=== PATIENT | male | born 1990 | race Caucasian/White ===

== ENCOUNTER 2017-12-28 08:10 | Emergency (ER) | payer OTHER, SELFPAY | END 2017-12-28 09:40 | disposition home or self-care (01) | LOC: M ED 08:10 | DX: S60.011A Contusion of right thumb without damage to nail, initial encounter (principal); W23.0XXA Caught, crushed, jammed, or pinched between moving objects, initial encounter; Y92.9 Unspecified place or not applicable; Y93.9 Activity, unspecified; Y99.0 Civilian activity done for income or pay; Z88.0 Allergy status to penicillin | CPT/HCPCS: 73140 ==

== ENCOUNTER 2018-01-27 08:55 | Emergency (ER) | payer SELFPAY, OTHER ==
[2018-01-27] MEDS: diazePAM 5 MG TAB PO (09:47)
[2018-01-27] MEDS: KETOROLAC 60 MG/2 ML VIAL (J1885) IM (09:47)
== END 2018-01-27 10:41 | disposition home or self-care (01) ==
LOC: M ED 08:55
DX: S39.012A Strain of muscle, fascia and tendon of lower back, initial encounter (principal); M54.16 Radiculopathy, lumbar region; X50.9XXA Other and unspecified overexertion or strenuous movements or postures, initial encounter; Y92.410 Unspecified street and highway as the place of occurrence of the external cause; Z88.0 Allergy status to penicillin
CPT/HCPCS: J1885

== ENCOUNTER 2019-04-17 20:23 | Emergency (ER) | payer SELFPAY ==
[~2019-04-17] VITALS: Ht 177.8 cm; Wt 82.9 kg
[~2019-04-17 20:23] MED LIST: KETO10TAB PO; VALI5TAB PO
[2019-04-17] MEDS ORDERED: diphenhydrAMINE INJ 50MG/ML VIAL (J1200) IV ONE (20:45)
[2019-04-17] MEDS ORDERED: FAMOTIDINE IV BAG 20 MG in APPROPRIATE DILUENT 1 EA IV ONE (20:45)
[2019-04-17] MEDS ORDERED: methylPREDNISolone INJ 125 MG/2 ML VIAL (J2930) IV ONE (20:45)
[2019-04-17 21:46] VITALS: BP 129/74
[2019-04-17] MEDS ORDERED: EPIP0.3I2 IM (22:33)
[2019-04-17] MEDS ORDERED: PRED20TA PO (22:33)
== END 2019-04-17 22:53 | disposition home or self-care (01) ==
LOC: M ED 20:23
DX: T63.441A Toxic effect of venom of bees, accidental (unintentional), initial encounter (principal); Y92.9 Unspecified place or not applicable; Y93.9 Activity, unspecified; L50.9 Urticaria, unspecified; Z88.0 Allergy status to penicillin; Z91.030 Bee allergy status
CPT/HCPCS: 96365; 96375; 99284; J1200; J2930

== ENCOUNTER 2019-09-02 09:30 | Emergency (ER) | payer SELFPAY ==
[~2019-09-02] VITALS: Ht 177.8 cm; Wt 81.8 kg
[~2019-09-02 09:30] MED LIST changes: +EPIP0.3I2 IM; +PRED20TA PO
[2019-09-02] MEDS ORDERED: IBUPROFEN 800 MG TAB PO ONE (10:00)
[2019-09-02] MEDS ORDERED: IBUP80TA PO (10:53)
--- NOTE | 2019-09-02 10:53 | REP ---
Left tib-fib series: Four views. History: Trauma. Findings: Four views of the left tibia and fibula demonstrate normal bones, joints and soft tissues. No fracture or subluxation is seen. Impression: Negative radiographs of the left calf. Electronically Signed by Cb Bird MD 09/02/2019 10:44 A
--- NOTE | 2019-09-02 10:53 | REP ---
Left ankle series: Four views. History: Injury in a fall. Findings: Four views of the left ankle demonstrate mild anterior swelling. Ankle mortise is intact. No fractures seen. Impression: No fracture noted. Mild anterior swelling. Electronically Signed by Cb Bird MD 09/02/2019 10:45 A
[2019-09-02 11:03] VITALS: BP 120/74
== END 2019-09-02 11:11 | disposition home or self-care (01) ==
LOC: M ED 09:30
DX: S93.402A Sprain of unspecified ligament of left ankle, initial encounter (principal); W10.2XXA Fall (on)(from) incline, initial encounter; Y92.009 Unspecified place in unspecified non-institutional (private) residence as the place of occurrence of the external cause; Y93.9 Activity, unspecified; Y99.9 Unspecified external cause status; Z88.1 Allergy status to other antibiotic agents; Z91.030 Bee allergy status

== ENCOUNTER 2020-09-10 13:31 | Emergency (ER) | payer OTHER, SELFPAY ==
[~2020-09-10] VITALS: Ht 177.8 cm; Wt 92.9 kg
[~2020-09-10 13:31] MED LIST changes: +IBUP80TA PO
--- OUTSIDE RECORDS SUMMARY | 2020-09-10 13:36 | CCD | Continuity of Care Document ---
Author Author Suleman KIMBROUGH MD Organization Unknown Address [address] [place] [address], [facility] [address] [place] [address] Phone [phone] Care Team Providers Care Lease Broker Name Role Phone Dio Ureña MD AUTM Unavailable Shobha GonzalezP AUTM Problems Active Problems Provider Date Lumbar radiculopathy Onset: Allergic reaction Onset: Contusion of right thumb Onset: 00 Ankle pain Onset: Sprain of ankle Onset: Low back strain Onset: Social History Type Date Description Comments Sex Unknown ETOH Use Occasionally consumes alcohol Tobacco Use Start: Unknown Patient has never smoked Allergies, Adverse Reactions, Alerts Active Allergies Reaction Severity Comments Date Amoxicillin 09/02/2019 Honey Bee Venom hives Severe 09/02/2019 Medications Active Medications SIG Qnty Indications Ordering Provide r Date Ibuprofen 800mg Tablets Every 6 Hours as needed for Pain 30tabs Unknown 09/02/2019 Fluticasone Propionate 50mcg/Act Suspension Valdo Vann md Levocetirizine Dihydrochloride 5mg Tablets Valdo Vann md Doxycycline Hyclate 100mg Tablets Ofelia De La Cruz FNP Naproxen 500mg Tablets Ofelia De La Cruz FNP Azithromycin 500mg Tablets TK 2 TS PO Now Unknown Immunizations Description No Information Available Vital Signs Date Vital Result Comment 07/24/2020 9:23am Body Temperature 98.2 F Height 70 inches 5'10" Weight 200.00 lb BMI (Body Mass Index) 28.7 kg/m2 09/04/2019 10:13am Body Temperature 97.9 F Height 70 inches 5'10" Weight 180.00 lb BMI (Body Mass Index) 25.8 kg/m2 Results Description No Information Available Procedures Description No Information Available Medical Devices Description No Information Available Encounters Type Date Location Provider Dx Diagnosis Office Visit 07/24/2020 9:30a [place] Bert Kimbrough MD M2 5.511 Pain in right shoulder Assessments Date Code Description Provider 07/24/2020 M25.511 Pain in right shoulder Bert Kimbrough MD Plan of Treatment 07/24/2020 - Bert Kimbrough MD* M25.511 Pain in right shoulder* Follow up:* [facility] after MRI results with DPV Functional Status Description No Information Available Mental Status Description No Information Available Referrals Refer to Reason for Referral Status Appt Date Jennifer Robledo MD MRI APPROVED PER [employer] FOR MRI OF RIGHT SHOULDER (49845) TO MRI. DG Created [facility] [address] [place] [address] [phone]
--- OUTSIDE RECORDS SUMMARY | 2020-09-10 13:36 | CCD | Continuity of Care Document ---
Author Author Suleman KIMBROUGH MD Organization Unknown Address [address] [place] [address] [address] [place] [address] Phone [phone] Care Team Providers Care Cessation Systems Outreach Specialist Name Role Phone Dio Ureña MD AUTM Unavailable Shobha Gonzalez TOUR PRODUCTION SUPERVISOR AUTM Problems Active Problems Provider Date Lumbar [...] Available Vital Signs Date Vital Result Comment 09/03/2020 8:36am Body Temperature 97.1 F 07/24/2020 9:23am Body Temperature 98.2 F Height 70 inches 5'10" Weight 200.00 lb BMI (Body Mass Index) 28.7 kg/m2 Results Description No Information Available Procedures Date Code Description Status 07/31/2020 89284 MRI Upper Extremity Any Joint Co mpleted Medical Devices Description No Information Available Encounters Type Date Location Provider Dx Diagnosis Office Visit 07/24/2020 9:30a [place] Bert Kimbrough MD M2 5.511 Pain in right shoulder Assessments Date Code Description Provider 09/03/2020 S43.431A [facility] gl[facility] lab rum lesion of right shoulder, initial encounter Bert Kimbrough MD 07/31/2020 M25.511 Pain in right shoulder Bert Kimbrough MD 07/31/2020 M25.511 Pain in right shoulder MRI 07/24/2020 M25.511 Pain in right shoulder Bert Kimbrough MD Plan of Treatment 09/03/2020 - Bert Kimbrough MD* S43.431A Superior glenoid labrum lesion of right shoulder, initial encounter* Follow up:* in 3-4 months with dpv Functional Status Description No Information Available Mental Status Description No Information Available Referrals Refer to Reason for Referral Status Appt Date Jennifer Robledo MD MRI APPROVED PER [employer] FOR MRI OF RIGHT SHOULDER (41427) TO MRI. DG Created [address] [place] [address] [address] [place] [address] [phone]
--- OUTSIDE RECORDS SUMMARY | 2020-09-10 13:36 | CCD ---
Continuity of Care Document (CCD) Created on: 08/06/2020 Suleman Berry External Reference #: [id number] : 1990 Sex: Male Author Author Suleman DE SOUZA Organization Unknown Address [address] [place] [address], [address] [place] [address] Phone [phone] Care Team Providers Care Procurement Buyer Name Role Phone Dio Ureña MD AUTM Unavailable Shobha Gonzalez AUTM [phone] Problems Active Problems Provider Date Lumbar radiculopathy [...] Available Procedures Date Code Description Status 07/31/2020 83015 MRI Upper Extremity Any Joint Co mpleted Medical Devices Description No Information Available Encounters Type Date Location Provider Dx Diagnosis Office Visit 07/24/2020 9:30a [place] Kimb[place] MD M2 5.511 Pain in right shoulder Assessments Date Code Description Provider 07/31/2020 M25.511 Pain in right shoulder Bert [...] Date Jennifer Robledo MD MRI APPROVED PER [employer] FOR MRI OF RIGHT SHOULDER (22436) TO MRI. DG Created [facility] [address] [place] [address] [phone]
--- OUTSIDE RECORDS SUMMARY | 2020-09-10 13:36 | CCD | Continuity of Care Document ---
Author Author Suleman HENDRIX Organization Unknown Address [address], [place] [address] Phone [phone] Care Team Providers Care Kettle Worker Name Role Phone Edita Ann PA-C AUTM [phone] Problems Active Problems Provider Date Bee sting-induced anaphylaxis Valdo Hendrix M.D. Onse t: 06/04/2020 Note: 3+ positive reaction to honey bee at 1 mcg/ml dilution. 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 Onset: Note: 3+ positive reaction yellow jacket and white faced hornet at 0.001 mcg/ml dilution. 3+ positive reaction yellow hornet at 0.01 mcg/ml dilution. Wasp sting-induced anaphylaxis Valdo Hendrix M.D. Ons et: 06/04/2020 Note: 3+ positive reaction to wasp at 0 .001 mcg/ml dilution. Allergic rhinitis due to house dust mite Valdo Hendrxi M.D. Onset: 07/10/2020 Note: 4++ reaction to dust mites on scra tch test. 3+ reaction to mold spores on intradermal test. Allergic rhinitis caused by mold Valdo Hendrix M.D. O nset: 07/10/2020 Note: 4++ reaction to dust mites on scra tch test. 3+ reaction to mold spores on intradermal test. Allergic rhinitis due to pollen Valdo Hendrix M.D. On set: 07/10/2020 Note: 4++ positive reaction to grass mundo alta and 4+ positive reaction to hickory tree pollen on scratch test. 4+ positive reaction to ragweed pollen, weed pollen, tree mix #1 (birch, oak, maple) and tree mix #2 (guillermo, cottonwood, elm, pine) on intradermal test. Allergic rhinitis due to animals Valdo Hendrix M.D. O nset: 07/10/2020 Note: 4++ positive reaction to cat dand er and 4+ positive reaction to dog dander on intradermal test. Currently exposed to 2 cats in the home. Toxic effect of venom of hornets, accidental (unintent ional), initial encounter Valdo Hendrix M.D. Onset: 07/10/2020 Social History Type Date Description Comments Sex Unknown Tobacco Use Start: Unknown Patient has never smoked Smoking Status Reviewed: 07/10/20 Patient has never smoked Allergies, Adverse Reactions, Alerts Active Allergies Reaction Severity Comments Date Amoxicillin Hives 06/04/2020 Medications Active Medications SIG Qnty Indications Ordering Provide r Date Fluticasone Propionate 50mcg/Act Suspension spray 2 sprays (100 mcg) in each nostril by intranasal route once daily in the evening 32gm J30.89 Valdo Hendrix M.D. 2019 Levocetirizine Dihydrochloride 5mg Tablets take one tablet by mouth every evening 30tabs J30.89 Wilmer Hendrix M.D. 07/10/2020 Epipen 2-Hamilton 0.3mg/0 .3ML Solution Auto-Inject inject 0.3 milliliter (0.3 mg) by intram uscular route once as needed for anaphylaxis Unknown History Medications No Active Medications Unknown - 07/10/2020 Immunizations Description No Information Available Vital Signs Date Vital Result Comment 07/10/2020 9:01am Weight 197.00 lb Height 71 inches 5'11" Heart Rate 76 /min Respiratory Rate 16 /min BP Systolic 114 mmHg BP Diastolic 64 mmHg BMI (Body Mass Index) 27.5 kg/m2 06/04/2020 8:26am Weight 195.00 lb Height 71 inches 5'11" Heart Rate 69 /min Respiratory Rate 18 /min BP Systolic 110 mmHg BP Diastolic 70 mmHg BMI (Body Mass Index) 27.2 kg/m2 Results Description No Information Available Procedures Date Code Description Status 07/10/2020 44304 Allergy Tests Intrad ermal W/ Allergenic Extr Immediate Reaction Completed 07/10/2020 11106 Allergy Tests Percutaneous W/ Al lergenic Extracts Completed 06/04/2020 04367 Allergy Testing Any Combination Percutaneous W/Venom Completed Medical Devices Description No Information Available Encounters Type Date Location Provider Dx Diagnosis Office Visit 07/10/2020 9:00a Main Office Valdo Hendrix M.D. Z01.82 Encounter for allergy testing J30.89 Other allergic rhinitis J30.1 Allergic rhinitis due to mundo alta J30.81 Allergic rhinitis due to ani mal (cat) (dog) hair and dander T63.461D Toxic effect of venom of was ps, accidental, subs T63.451D Toxic effect of venom of hor nets, accidental, subs T63.441D Toxic effect of venom of bee s, accidental, subs Assessments Date Code Description Provider 07/10/2020 Z01.82 Encounter for allergy testing Wilmer Hendrix M.D. 07/10/2020 J30.89 Allergic rhinitis due to house d ust mites and mold spores Valdo Hendrix M.D. 07/10/2020 J30.1 Allergic rhinitis due to pollen Valdo Hendrix M.D. 07/10/2020 J30.81 Allergic rhinitis due to animals Valdo Hendrix M.D. 07/10/2020 T63.461D Toxic effect of veno m of wasps, accidental (unintentional), subsequent encounter Valdo Hendrix M.D. 07/10/2020 T63.451D Toxic effect of veno m of hornets, accidental (unintentional), subsequent encounter Valdo Hendrix M.D. 07/10/2020 T63.441D Toxic effect of veno m of bees, accidental (unintentional), subsequent encounter Valdo Hendrix M.D. Plan of Treatment Future Appointment(s):* 12/08/2020 9:15 am - Valdo Hendrix M.D. at Main Office 07/10/2020 - Valdo Hendrix M.D.* Z01.82 Encounter for allergy testing * J30.89 Allergic rhinitis due to house dust mites and mold spores* New Medication:* Fluticasone Propionate 50 mcg/Act - spray 2 sprays (100 mcg) in each nostril by intranasal route once daily in the evening * Levocetirizine Dihydrochloride 5 mg - take one tablet by mouth every evening * Recommendations:* I reviewed effective allergy avoidance measures for dust mites. I suggested to start this patient on intranasal steroid spray for the congestion and to use antihistamine prn itching and sneezing. Nasal spray should be used consistently every night to be effective. Oral antihistamine should help with itchy eyes, nose and sneezing when needed. Because of the severity of allergy problem allergy immunotherapy may be considered strongly if symptoms continue or fail to improve with medications. I explained the risks and benefits associated with immunotherapy at this time as well. * J30.1 Allergic rhinitis due to pollen* Recommendations:* I reviewed allergy avoidance measures for pollen that may possibly help with symptoms. See above. * J30.81 Allergic rhinitis due to animals* Recommendations:* I reviewed effective allergy avoidance measures in regards to his/her allergy to animals. See above. * T63.461D Toxic effect of venom of wasps, accidental (unintentional), subsequent encounter* Recommendations:* Bee avoidance measures were explained in details and recommended. Access to injectable epinephrine is necessary. I also reviewed indications for EpiPen and proper technique. * T63.451D Toxic effect of venom of hornets, accidental (unintentional), subsequent encounter* Recommendations:* Bee avoidance measures were explained in details and recommended. Access to injectable epinephrine is necessary. I also reviewed indications for EpiPen and proper technique. * T63.441D Toxic effect of venom of bees, accidental (unintentional), subsequent encounter* Recommendations:* Bee avoidance measures were explained in details and recommended. Access to injectable epinephrine is necessary. I also reviewed indications for EpiPen and proper technique. * All * Follow up:* 3 months. Sooner if needed. Functional Status Description No Information Available Mental Status Description No Information Available Referrals Description No Information Available
--- OUTSIDE RECORDS SUMMARY | 2020-09-10 13:36 | CCD | Continuity of Care Document ---
Author Author Suleman DE SOUZA Organization Unknown Address [address] [place] [address], [address] [place] [address] Phone [phone] Care Team Providers Care Drying Machine Operator Name Role Phone Dio Ureña MD AUTM Unavailable Shobha Gonzalez AUTM [phone] Problems Active Problems Provider Date Lumbar [...] Provider Dx Diagnosis Office Visit 07/24/2020 9:30a [place] M7 5.21 Bicipital tendinitis, right shoulder Assessments Date Code Description Provider 07/24/2020 M75.21 Bicipital tendinitis, right shou lder Bert Kimbrough MD Plan of Treatment 07/24/2020 - Bert Kimbrough MD* M75.21 Bicipital tendinitis, right shoulder* Follow up:* [facility] after MRI results with DPV Functional Status Description No Information Available Mental Status Description No Information Available Referrals Refer to Dr Reason for Referral Status Appt Date Jennifer Robledo MD MRI APPROVED PER [employer] FOR MRI OF RIGHT SHOULDER (48363) TO MRI. DG Created [address] [facility] [address] [place] [address] [phone]
--- OUTSIDE RECORDS SUMMARY | 2020-09-10 13:36 | CCD | Continuity of Care Document ---
Author Author Suleman HENDRIX Organization Unknown Address [address], [place] [address] Phone [phone] Care Team Providers Care Metal Moulder Name Role Phone Edita Ann PA-C AUTM [phone] Problems Active Problems Provider Date Bee sting-induced [...] .001 mcg/ml dilution. Allergic rhinitis due to pollen Valdo Hendrix M.D. On set: 07/10/2020 Allergic rhinitis due to house dust mite Valdo Hendrix M.D. Onset: 07/10/2020 Social History Type Date Description Comments Sex Unknown Tobacco Use Start: Unknown Patient has never smoked Smoking Status Reviewed: 07/10/20 Patient has never smoked Allergies, Adverse Reactions, Alerts Active Allergies Reaction Severity Comments Date Amoxicillin Hives 06/04/2020 Medications Active Medications SIG Qnty Indications Ordering Provide r Date Epipen 2-Hamilton 0.3mg/0 .3ML Solution Auto-Inject inject [...] Available Procedures Date Code Description Status 07/10/2020 31317 Allergy Tests Intrad ermal W/ Allergenic Extr Immediate Reaction Completed 07/10/2020 89315 Allergy Tests Percutaneous W/ Al lergenic Extracts Completed 06/04/2020 42715 Allergy Testing Any Combination Percutaneous W/Venom Completed Medical Devices Description No Information Available Encounters Type Date Location Provider Dx Diagnosis Office Visit 06/04/2020 8:30a Main Office Valdo Hendrix M.D. T63.441A Toxic effect of venom of bees, accidental, init T63.461A Toxic effect of venom of was ps, accidental, init T63.451A Toxic effect of venom of hor nets, accidental, init J31.0 Chronic rhinitis Assessments Date Code Description Provider 07/10/2020 Z01.82 Encounter for allergy testing Wilmer Hendrix M.D. 07/10/2020 J30.89 Allergic rhinitis due to house d ust mite Valdo Hendrix M.D. 07/10/2020 J30.1 Allergic rhinitis due to pollen Valdo Hendrix M.D. 07/10/2020 T63.441A Bee sting-induced anaphylaxis Wilmer Hendrix M.D. 07/10/2020 T63.461A Wasp sting-induced anaphylaxis Cristy Hendrix M.D. 07/10/2020 T63.451A Hornet sting-induced anaphylaxis Valdo Hendrix M.D. Plan of Treatment Future Appointment(s):* 12/08/2020 9:15 am - Valdo Hendrix M.D. at Main Office 07/10/2020 - Valdo Hendrix M.D.* Z01.82 Encounter for allergy testing * J30.89 Allergic rhinitis due to house dust mite* Recommendations:* I reviewed effective allergy avoidance measures for dust mites. I suggested to start this patient on intranasal steroid spray for the congestion and to use anti histamine prn itching and sneezing. Nasal spray should [...] possibly help with symptoms. See above. * T63.441A Bee sting-induced anaphylaxis * T63.461A Wasp sting-induced anaphylaxis * T63.451A Hornet sting-induced anaphylaxis Functional Status Description No Information Available Mental Status Description No Information Available Referrals Description No Information Available
--- OUTSIDE RECORDS SUMMARY | 2020-09-10 13:36 | CCD ---
Author Organization Unknown Address [address] [place] [address] Phone [phone] Care Team Providers Care Scale Tank Operator Name Role Phone Edita Ann Unavailable Unavailable Allergies Code Code System Name Reaction Severity Status Onset 723 RxNorm Amoxicillin Hives Moderate to Severe Active Bee Venom Protein (Honey Bee) Hives Severe Active Medications Name Status Start Date Stop Date doxycycline hyclate 100 mg tablet Completed 06/23/2020 naproxen 500 mg tablet Completed 0 Jamison-E (Enteric Coated) 400 mg tablet,del ayed release Take 2 tablets every day by oral route in the morning. Active Not available Problems None recorded. Procedures None recorded. Results Lab Results None recorded. Past Encounters 06/23/2020 Adult Health Examination; Pain of Right Shoulder Joint; Moderate Recurrent Major Depression Edita Ann PA-C: [address] [place] [address], Ph. 06/22/2020 Generalized Anxiety Disorder; Posttraumatic Stress Disorder; Moderate Recurrent Major Depression Yue Hurtadojaymebryantreyes [facility]: [address] [facility] [address], [place] [address], Ph. 06/16/2020 Posttraumatic Stress Disorder; Generalized Anxiety Disorder; Moderate Recurrent Major Depression Yue Reneereyes [facility]: [address] [facility] [address], [place] [address], Ph. Social History Tobacco Smoking Status Never Smoker Vaccine List None recorded. Plan of Care Reminders Provider Appointments None recorded. Lab None recorded. Referral None recorded. Procedures None recorded. Surgeries None recorded. Imaging None recorded. Vitals Height Weight BMI Blood Pressure 70 in 200 lbs 6.4 oz 28.8 kg/m2 126/81 mm[Hg ]
--- OUTSIDE RECORDS SUMMARY | 2020-09-10 13:36 | CCD | Continuity of Care Document ---
Author Author Suleman KIMBROUGH MD Organization Unknown Address [address] [place] [address], [address] [address] Phone [phone] Care Team Providers Care Automation Qtp Tester Name Role Phone Dio Ureña MD AUTM Unavailable Shobha GonzalezP AUTM [phone] Problems Active Problems Provider Date Lumbar [...] Medical Devices Description No Information Available Encounters Description No Information Available Assessments Date Code Description Provider 07/24/2020 M75.21 Bicipital tendinitis, right shou ldcrystal Kimbrough MD Plan of Treatment 07/24/2020 - Bert Kimbrough MD* M75.21 Bicipital tendinitis, right shoulder* New Xrays:* MRI Right Shoulder, Ordered: 07/24/20 * Follow up:* [facility] after MRI results with DPV Functional Status Description No Information Available Mental Status Description No Information Available Referrals Description No Information Available
--- OUTSIDE RECORDS SUMMARY | 2020-09-10 13:37 | CCD ---
Author Organization Unknown Address [address] [place] [address] Phone [phone] Care Team Providers Care Radiologic Therapist Name Role Phone Edita Ann Unavailable Unavailable Allergies None recorded. Medications Name Status Start Date Stop Date doxycycline hyclate 100 mg tablet Active Not available naproxen 500 mg tablet Active Not avail able Problems None recorded. Procedures None recorded. Results Lab Results None recorded. Past Encounters 06/16/2020 Posttraumatic Stress Disorder; Generalized Anxiety Disorder; Moderate Recurrent Major Depression [facility]: [address] [facility] [facility] [address], [place] [address], Ph. Social History None recorded. Vaccine List None recorded. Plan of Care Reminders Provider Appointments None recorded. Lab None recorded. Referral None recorded. Procedures None recorded. Surgeries None recorded. Imaging None recorded. Vitals None recorded.
--- OUTSIDE RECORDS SUMMARY | 2020-09-10 13:37 | CCD ---
Author Organization Unknown Address [address] [place] [address] Phone [phone] Care Team Providers Care Milk Pasteurizer Name Role Phone Edita Ann Unavailable Unavailable [...] Recurrent Major Depression Edita Ann PA-C: [address] [place] [address], Ph. 06/22/2020 Generalized Anxiety Disorder; Posttraumatic Stress Disorder; Moderate Recurrent Major Depression Yue Hurtadojaymebryantreyes [facility]: [address] [facility] [address], [place] [address], Ph. 06/16/2020 Posttraumatic Stress Disorder; Generalized Anxiety Disorder; Moderate Recurrent Major Depression Yue Reneereyes [facility]: [address] [facility] [address], [place] [address], Ph. Social History Tobacco Smoking Status Never Smoker Vaccine List None recorded. Plan of Care Reminders Provider Appointments None recorded. Lab None recorded. Referral None recorded. Procedures None recorded. Surgeries None recorded. Imaging None recorded. Vitals Height Weight BMI Blood Pressure 70 in 200 lbs 6.4 oz 28.8 kg/m2 126/81 mm[Hg ]
--- OUTSIDE RECORDS SUMMARY | 2020-09-10 13:37 | CCD ---
Author Author [facility] Organization [facility] Address Unknown Phone Unavailable Care Team Providers Care Cash Register Mechanic Name Role Phone Edita Ann Unavailable Unavailable JENNIFER BEACH MD Unavailable Unavailable JENNIFER BEACH MD Unavailable Unavailable JENNIFER BEACH MD Unavailable Unavailable JENNIFER BEACH MD Unavailable Unavailable JENNIFER BEACH MD Unavailable Unavailable JENNIFER BEACH MD Unavailable Unavailable JENNIFER BEACH MD Unavailable Unavailable JENINFER BEACH MD Unavailable Unavailable JENNIFER BEACH MD Unavailable Unavailable JENNIFER BEACH MD Unavailable Unavailable JENNIFER BEACH MD Unavailable Unavailable JENNIFER BEACH MD Unavailable Unavailable JENNIFER BEACH MD Unavailable Unavailable JENNIFER BEACH MD Unavailable Unavailable JENNIFER BEACH MD Unavailable Unavailable JENNIFER BEACH MD Unavailable Unavailable JENNIFER BEACH MD Unavailable Unavailable JENNIFER BEACH MD Unavailable Unavailable JENNIFER BEACH MD Unavailable Unavailable JENNIFER BEACH MD Unavailable Unavailable JENNIFER BEACH MD Unavailable Unavailable JENNIFER BEACH MD Unavailable Unavailable JENNIFER BEACH MD Unavailable Unavailable JENNIFER BEACH MD Unavailable Unavailable JENNIFER BEACH MD Unavailable Unavailable BEACHJENNIFER HERNANDEZ MD Unavailable Unavailable BEACHJENNIFER HERNANDEZ MD Unavailable Unavailable BEACHJENNIFER HERNANDEZ MD Unavailable Unavailable BEACHJENNIFER HERNANDEZ MD Unavailable Unavailable BEACHJENNIFER HERNANDEZ MD Unavailable Unavailable CHROSTOWSKI, MICHAEL MD Unavailable Unavailable CHROSTOWSKI, MICHAEL MD Unavailable Unavailable CHROSTOWSKI, MICHAEL MD Unavailable Unavailable CHROSTOWSKI, MICHAEL MD Unavailable Unavailable CHROSTOWSKI, MICHAEL MD Unavailable Unavailable CHROSTOWSKI, MICHAEL MD Unavailable Unavailable CHROSTOWSKI, MICHAEL MD Unavailable Unavailable CHROSTOWSKI, MICHAEL MD Unavailable Unavailable CHROSTOWSKI, MICHAEL MD Unavailable Unavailable CHROSTOWSKI, MICHAEL MD Unavailable Unavailable CHROSTOWSKI, MICHAEL MD Unavailable Unavailable CHROSTOWSKI, MICHAEL MD Unavailable Unavailable CHROSTOWSKI, MICHAEL MD Unavailable Unavailable CHROSTOWSKI, MICHAEL MD Unavailable Unavailable CHROSTOWSKI, MICHAEL MD Unavailable Unavailable CHROSTOWSKI, MICHAEL MD Unavailable Unavailable CHROSTOWSKI, MICHAEL MD Unavailable Unavailable CHROSTOWSKI, MICHAEL MD Unavailable Unavailable CHROSTOWSKI, MICHAEL MD Unavailable Unavailable CHROSTOWSKI, MICHAEL MD Unavailable Unavailable CHROSTOWSKI, MICHAEL MD Unavailable Unavailable CHROSTOWSKI, MICHAEL MD Unavailable Unavailable CHROSTOWSKI, MICHAEL MD Unavailable Unavailable CHROSTOWSKI, MICHAEL MD Unavailable Unavailable CHROSTOWSKI, MICHAEL MD Unavailable Unavailable CHROSTOWSKI, MICHAEL MD Unavailable Unavailable CHROSTOWSKI, MICHAEL MD Unavailable Unavailable CHROSTOWSKI, MICHAEL MD Unavailable Unavailable CHROSTOWSKI, MICHAEL MD Unavailable Unavailable CHROSTOWSKI, MICHAEL MD Unavailable Unavailable CHROSTOWSKI, MICHAEL MD Unavailable Unavailable CHROSTOWSKI, MICHAEL MD Unavailable Unavailable CHROSTOWSKI, MICHAEL MD Unavailable Unavailable CHROSTOWSKI, MICHAEL MD Unavailable Unavailable CHROSTOWSKI, MICHAEL MD Unavailable Unavailable CHROSTOWSKI, MICHAEL MD Unavailable Unavailable CHROSTOWSKI, MICHAEL MD Unavailable Unavailable CHROSTOWSKI, MICHAEL MD Unavailable Unavailable CHROSTOWSKI, MICHAEL MD Unavailable Unavailable CHROSTOWSKI, MICHAEL MD Unavailable Unavailable Washington Ann Unavailable Unavailable Washington Ann Unavailable Unavailable Washington Ann Unavailable Unavailable Washington nAn Unavailable Unavailable Washington Ann Unavailable Unavailable Scordo, M Edita PA Unavailable Unavailable Scordo, M Edita PA Unavailable Unavailable Scordo, M Edita PA Unavailable Unavailable Scordo, M Edita PA Unavailable Unavailable Scordo, M Edita PA Unavailable Unavailable Scordo, M Edita PA Unavailable Unavailable Scordo, M Edita PA Unavailable Unavailable Scordo, M Edita PA Unavailable Unavailable Scordo, M Edita PA Unavailable Unavailable Scordo, M Edita PA Unavailable Unavailable Scordo, M Edita PA Unavailable Unavailable Scordo, M Edita PA Unavailable Unavailable Scordo, M Edita PA Unavailable Unavailable Scordo, M Edita PA Unavailable Unavailable Scordo, M Edita PA Unavailable Unavailable Scordo, M Edita PA Unavailable Unavailable Scordo, M Edita PA Unavailable Unavailable Scordo, M Edita PA Unavailable Unavailable Scordo, M Edita PA Unavailable Unavailable Scordo, M Edita PA Unavailable Unavailable Scordo, M Edita PA Unavailable Unavailable Scordo, M Edita PA Unavailable Unavailable Scordo, M Edita PA Unavailable Unavailable Scordo, M Edita PA Unavailable Unavailable Scordo, M Edita PA Unavailable Unavailable Scordo, M Edita PA Unavailable Unavailable Scordo, M Edita PA Unavailable Unavailable Scordo, M Edita PA Unavailable Unavailable Scordo, M Edita PA Unavailable Unavailable Scordo, M Edita PA Unavailable Unavailable Scordo, M Edita PA Unavailable Unavailable Scordo, M Edita PA Unavailable Unavailable Scordo, M Edita PA Unavailable Unavailable Scordo, M Edita PA Unavailable Unavailable Scordo, M Edita PA Unavailable Unavailable [facility], SSCORDO SCORDO PA EDITA Unavailable Unavaila ble Rosi Yue Unavailable [phone] Cristy Kimbrough MD Unavailable Unavailable Cristy Kimbrough MD Unavailable Unavailable Cristy Kimbrough MD Unavailable Unavailable rCisty Kimbrough MD Unavailable Unavailable Cristy Kimbrough MD Unavailable Unavailable Cristy Kimbrough MD Unavailable Unavailable Cristy Kimbrough MD Unavailable Unavailable Cristy Kimbrough MD Unavailable Unavailable Cristy Kimbrough MD Unavailable Unavailable Cristy Kimbrough MD Unavailable Unavailable Cristy Kimbrough MD Unavailable Unavailable Cristy Kimbrough MD Unavailable Unavailable Cristy Kimbrough MD Unavailable Unavailable VanCristy holman MD Unavailable Unavailable VanCristy holman MD Unavailable Unavailable VanCristy holman MD Unavailable Unavailable VanCristy holman MD Unavailable Unavailable Cristy Kimbrough MD Unavailable Unavailable VanCristy holman MD Unavailable Unavailable VanCristy holman MD Unavailable Unavailable Cristy Kimbrough MD Unavailable Unavailable Cristy Kimbrough MD Unavailable Unavailable Cristy Kimbrough MD Unavailable Unavailable VanCristy holman MD Unavailable Unavailable VanCristy holman MD Unavailable Unavailable VanCristy holman MD Unavailable Unavailable Cristy Kimbrough MD Unavailable Unavailable Cristy Kimbrough MD Unavailable Unavailable Cristy Kimbrough MD Unavailable Unavailable Cristy Kimbrough MD Unavailable Unavailable Cristy Kimbrough MD Unavailable Unavailable Cristy Kimbrough MD Unavailable Unavailable Cristy Kimbrough MD Unavailable Unavailable Cristy Kimbrough MD Unavailable Unavailable Cristy Kimbrough MD Unavailable Unavailable Cristy Kimbrough MD Unavailable Unavailable Cristy Kimbrough MD Unavailable Unavailable Cristy Kimbrough MD Unavailable Unavailable Cristy Kimbrough MD Unavailable Unavailable Cristy Kimbrough MD Unavailable Unavailable Cristy Kimbrough MD Unavailable Unavailable Cristy Kimbrough MD Unavailable Unavailable Cristy Kimbrough MD Unavailable Unavailable Cristy Kimbrough MD Unavailable Unavailable JENNIFER BEACH MD Unavailable Unavailable JENNIFER BEACH MD Unavailable Unavailable JENNIFER BEACH MD Unavailable Unavailable JENNIFER BEACH MD Unavailable Unavailable JENNIFER BEACH MD Unavailable Unavailable JENNIFER EBACH MD Unavailable Unavailable JENNIFER BEACH MD Unavailable Unavailable JENNIFER BEACH MD Unavailable Unavailable JENNIFER BEACH MD Unavailable Unavailable JENNIFER BEACH MD Unavailable Unavailable JENNIFER BEACH MD Unavailable Unavailable JENNIFER BEACH MD Unavailable Unavailable JENNIFER BEACH MD Unavailable Unavailable JENNIFER BEACH MD Unavailable Unavailable JENNIFER BEACH MD Unavailable Unavailable JENNIFER BEACH MD Unavailable Unavailable JENNIFER BEACH MD Unavailable Unavailable JENNIFER BEACH MD Unavailable Unavailable JENNIFER BEACH MD Unavailable Unavailable JENNIFER BEACH MD Unavailable Unavailable JENNIFER BEACH MD Unavailable Unavailable JENNIFER BEACH MD Unavailable Unavailable JENNIFER BEACH MD Unavailable Unavailable BEACH, JENNIFER MD Unavailable Unavailable BEACH, JENNIFER MD Unavailable Unavailable BEACH, JENNIFER MD Unavailable Unavailable BEACH, JENNIFER MD Unavailable Unavailable BEACH, JENNIFER MD Unavailable Unavailable BEACH, JENNIFER MD Unavailable Unavailable BEACH, JENNIFER MD Unavailable Unavailable Re-disclosure Warning The records that you are about to access may contain information from federally-assisted alcohol or drug abuse programs. If such information is present, then the following federally mandated warning applies: This information has been disclosed to you from records protected by federal confidentiality rules (42 CFR part 2). The federal rules prohibit you from making any further disclosure of this information unless further disclosure is expressly permitted by the written consent of the person to whom it pertains or as otherwise permitted by 42 CFR part 2. A general authorization for the release of medical or other information is NOT sufficient for this purpose. The Federal rules restrict any use of the information to criminally investigate or prosecute any alcohol or drug abuse patient.The records that you are about to access may contain highly sensitive health information, the redisclosure of which is protected by Article 27-F of the [facility] Public Health law. If you continue you may have access to information: Regarding HIV / AIDS; Provided by facilities licensed or operated by the [facility] Office of Mental Health; or Provided by the [facility] Office for People With Developmental Disabilities. If such information is present, then the following [facility] mandated warning applies: This information has been disclosed to you from confidential records which are protected by state law. State law prohibits you from making any further disclosure of this information without the specific written consent of the person to whom it pertains, or as otherwise permitted by law. Any unauthorized further disclosure in violation of state law may result in a fine or retirement sentence or both. A general authorization for the release of medical or other information is NOT sufficient authorization for further disc losure. Allergies and Adverse Reactions Type Description Substance Reaction Status Data Source(s ) Miscellaneous allergy SEASONAL ALLERGIES SEASONAL ALLERGIES [facility] Drug allergy AMOXICILLIN AMOXICILLIN [facility] Miscellaneous allergy BEE STINGS BEE STINGS Hives [facility] Allergy to substance Allergy to substance Allergy to substance [facility] ([facility]) Encounters Encounter Providers Location Date Indications Data Source(s ) Outpatient Attender: Cristy Kimbrough MD Physical Therap y 07/24/2020 08:30:00 AM EST [facility] ([facility]) Outpatient Attender: MICHAEL HENDRIX MD Main Office 07/10/2020 08:00:00 AM EST [facility] ([facility] RASHMI RossC: [address] [place] [address], Ph. Attender: Edita ALVAREZ [facility] 06/23/2020 12:00:00 AM EST [facility] ([facility]) Edita Ann PA-C: [address] [place] [address], Ph. Attender: Edita ALVAREZ [facility] 06/23/2020 12:00:00 AM EST [facility] ([facility]) Yue Aranda, SCRAP HOOKER-R: [address], [place] [address], Ph. Attender: Yue Aranda [facility] 06/22/2020 12:00:00 AM EST [facility] ([facility]) Yue Aranda, SCRAP HOOKER-R: [address], [place] [address], Ph. Attender: Yue Aranda [facility] 06/22/2020 12:00:00 AM EST [facility] ([facility]) Yue Aranda, SCRAP HOOKER-R: [address], [place] [address], Ph. Attender: Yue Aranda [facility] 06/16/2020 12:00:00 AM EDT [facility] ([facility]) Yue Aranda, SCRAP HOOKER-R: [address], [place] [address], Ph. Attender: Yue Aranda [facility] 06/16/2020 12:00:00 AM EDT [facility] ([facility]) Yue Aranda, SCRAP HOOKER-R: [address], [place] [address], Ph. Attender: Yue Aranda [facility] 06/16/2020 12:00:00 AM EDT [facility] ([facility]) Outpatient Attender: MICHAEL HENDRIX MD Main Office 06/04/2020 08:30:00 AM EDT [facility] ([facility]) Outpatient Attender: KIM CEE 06/01/2020 08:01:01 PM EDT [facility] 06/01/2020 02:42:00 PM EDT [facility] Outpatient Attender: KIM CEE 05/25/2020 08:01:02 PM EDT [facility] Outpatient Attender: KIM CEE 05/25/2020 04:40:01 PM EDT [facility] Outpatient Attender: KIM CEE 05/25/2020 03:26:01 PM EDT [facility] Outpatient Attender: KIM CEE 05/19/2020 05:38:02 PM EDT [facility] Outpatient Attender: SOLANGE CHAND JAYE 05/19/2020 05:38:02 PM EDT [facility] Outpatient Attender: KIM CEE 05/14/2020 04:23:01 PM EDT [facility] Outpatient Attender: KIM CEE 05/13/2020 12:08:00 PM EDT [facility] Outpatient Attender: KIM CEE 05/04/2020 07:29:00 AM EDT [facility] Outpatient Attender: KIM CEE 05/02/2020 12:00:11 AM EDT [facility] Outpatient Attender: SOLANGE [facility] 05/01/2020 08:01:06 PM EDT [facility] Outpatient Attender: KIM CEE 05/01/2020 08:01:02 PM EDT [facility] Outpatient Attender: KIM CEE 05/01/2020 11:08:00 AM EDT [facility] Outpatient Attender: SOLANGE [facility]ERN[facility] 05/01/2020 11:07:00 AM EDT [facility] Outpatient Attender: KIM CEE 05/01/2020 09:40:01 AM EDT [facility] Outpatient Attender: KIM CEE 05/01/2020 09:38:01 AM EDT [facility] Outpatient Attender: KIM CEE 05/01/2020 09:37:00 AM EDT [facility] Outpatient Attender: KIM CEE 05/01/2020 09:34:00 AM EDT [facility] Outpatient Attender: KIM CEE 04/24/2020 05:00:01 PM EDT [facility] Outpatient Attender: KIM CEE 04/24/2020 01:43:02 PM EDT [facility] Outpatient Attender: KIM CEE 04/24/2020 01:42:01 PM EDT [facility] Outpatient Referrer: JENNIFER BEACH MD 09/17/2019 01:23:0 0 PM EST [facility] Outpatient Attender: JENNIFER BEACH MD Physical Therapy 08:15:00 AM EST [facility] ([facility]) Outpatient Referrer: JENNIFER BEACH MD 09/07/2019 08:22:0 0 AM EST [facility] Outpatient Referrer: JENNIFER BEACH MD 09/07/2019 08:22:0 0 AM EST [facility] Outpatient Referrer: JENNIFER BEACH MD 09/07/2019 08:18:0 0 AM EST [facility] Outpatient Referrer: JENNIFER BEACH MD 09/05/2019 04:14:0 0 PM EST [facility] Outpatient 09/05/2019 04:12:00 PM EST [facility] Outpatient 09/05/2019 03:58:[address] [facility] Outpatient Attender: JENNIFER BEACH MD Physical Therapy 08:30:00 AM EST [facility] ([facility]) Medications Medication Brand Name Start Date Product Form Dose Route Admi nistrative Instructions Pharmacy Instructions Status Indications Reaction Description Data Source(s) levocetirizine dihydrochloride 5 MG Oral Tablet Levocetirizi ne Dihydrochloride 07/10/2020 12:00:00 AM EST ORAL active [facility] ([facility]) Fluticasone Propionate Fluticasone Propionate 07/10/2020 12:00:[address] active [facility] No Active Medications 06/04/2020 12:00:00 AM EDT completed [facility] ([facility]) Ibuprofen 800 MG Oral Tablet Ibuprofen 09/02/2019 12:00:00 AM EST active [facility] ([facility] Epinephrine Epinephrine 04/17/2019 12:00:00 AM EDT completed [facility] ([facility] ) doxycycline hyclate 100 MG Oral Tablet doxycycline hyc late 100 mg tablet doxycycline hyclate 100 mg tablet comp leted doxycycline hyclate 100 MG Oral Tablet [facility] ([facility]) doxycycline hyclate 100 MG Oral Tablet doxycycline hyc late 100 mg tablet doxycycline hyclate 100 mg tablet comp leted doxycycline hyclate 100 MG Oral Tablet [facility] ([facility]) Naproxen 500 MG Oral Tablet naproxen 500 mg tablet naproxen 500 mg ta blet completed naproxen 500 MG Oral Tablet [facility] ([facility]) Naproxen 500 MG Oral Tablet naproxen 500 mg tablet naproxen 500 mg ta blet completed naproxen 500 MG Oral Tablet [facility] ([facility]) Insurance Providers Payer name Policy type / Coverage type Policy ID Covered alliance party ID Covered alliance party's relationship to barboza Policy Barboza Plan Information SELF PAY ONLY [id number] SP [id number] Managed Care - MVP P [id number] S [id number] Medicaid S [id number] S [id number] Managed Care - [facility] P [id number] S [id number] Medicaid S [id number] S [id number] [facility] P [id number] S [id number] [facility] P [id number] S [id number] O UNAVAILABLE UNAVAILA BLE SELF PAY O UNAVAILABLE S UNAVAILA BLE [facility]) O [id number] S [id number] [employer] [facility] [id number] SP [id number] [employer] [facility] [id number] SP [id number] [facility] COMMUNITY PLAN [facility] [id number] SP [id number] [facility] [id number] SP [id number] [facility] P [id number] S [id number] [facility] [id number] Problems, Conditions, and Diagnoses Code Display Name Description Problem Type Effective Dates Data Source(s) Toxic effect of venom of hor nets, accidental (unintentional), initial encounter Toxic effect of venom of hornets, accide ntal (unintentional), initial encounter Problem 07/10/2020 12:00:00 AM EST [facility] ([facility] [id number] Allergic rhinitis due to animals Allergic rhinit is due to animals Problem 07/10/2020 12:00:00 AM EST [facility] ([facility]) Note: 4++ positive reaction to cat dand er and 4+ positive reaction to dog dander on intradermal test. Currently exposed to 2 cats in the home. [id number] Allergic rhinitis due to pollen Allergic rhiniti s due to pollen Problem 07/10/2020 12:00:00 AM EST [facility] ([facility]) Note: 4++ positive reaction to grass mundo [place] and 4+ positive reaction to hickory tree pollen on scratch test. 4+ positive reaction to ragweed pollen, weed pollen, tree mix #1 (birch, oak, maple) and tree mix #2 (guillermo, cottonwood, elm, pine) on intradermal test. [id number] Allergic rhinitis caused by mold Allergi c rhinitis caused by mold Problem 07/10/2020 12:00:00 AM EST [facility] ([facility]) Note: 4++ reaction to dust mites on scra tch test. 3+ reaction to mold spores on intradermal test. [id number] Allergic rhinitis due to house dust mite Allergic rhinitis due to house dust mite Problem 07/10/2020 12:00:00 AM EST [facility] ([facility]) Note: 4++ reaction to dust mites on scra tch test. 3+ reaction to mold spores on intradermal test. [id number] Wasp sting-induced anaphylaxis Wasp sting-induced anap hylaxis Problem 06/04/2020 12:00:00 AM EDT [facility] ([facility] ) Note: 3+ positive reaction to wasp at 0 .001 mcg/ml dilution. 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 ) Note: 3+ positive reaction yellow jacket and white faced hornet at 0.001 mcg/ml dilution. 3+ positive reaction yellow hornet at 0.01 mcg/ml dilution. [id number] Bee sting-induced anaphylaxis Bee sting-induced anaphy laxis Problem 06/04/2020 12:00:00 AM EDT [facility] ([facility] [address] [facility] ) Note: 3+ positive reaction to honey bee at 1 mcg/ml dilution. 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 DEPRESSIVE DISORDER, MAJOR, RECURRENT EPISODE, SEVERE 05/19/2020 05:37:59 PM EDT [facility] L03.119 Cellulitis of unspecified part of limb Cellulitis, kne e 05/01/2020 11:06:41 AM EDT [facility] Z00.8 Encounter for other general examination Encounter for other general examination 05/01/2020 11:06:41 AM EDT [facility] 719.41 Shoulder joint pain, right Shoulder joint pain, right 05/01/2020 11:06:41 AM EDT [facility] 311 Depression Depression 05/01/2020 11:06:41 AM ED T [facility] 989.5 Bee sting allergy Bee sting allergy 05/01/2020 11:06:41 AM EDT [facility] 477.9 Allergic rhinitis Allergic rhinitis 05/01/2020 11:06:41 AM EDT [facility] Surgeries/Procedures Procedure Description Date Indications Data Source(s) MRI Upper Extremity Any Joint 07/31/2020 12:00:[address] [facility] ([facility]) PERCUTANEOUS TESTS W/ALLERGENIC EXTRACTS 07/10/2020 12 :00:00 AM EST [facility] INTRACUTANEOUS TESTS W/ALLERGENIC EXTRACTS 07/10/2020 12:00:00 AM EST [facility] ([facility] Allergy Testing Any Combination Percutaneous W/Venom 06/04/2020 12:00:00 AM EDT [facility] Results ID Date Data Source [id number] 07/01/2020 12:00:00 AM EST [facility] Name Value Range Interpretation Code Description Data Silvia rce(s) Supporting Document(s) SARS coronavirus 2 RNA [Presence] in Res piratory specimen by ITZEL with probe detection [facility] This lab was ordered by Lesley Hall and reported by [email or web address]. ID Date Data Source [id number] 05/01/2020 09:55:36 AM EDT [facility] Measurements & CalculationsHeight: 70 inches (5 ft. 10 in.) 177.80 cm Weight: 204 pounds 92.73 kg Body Mass Index (BMI): 29.38BMI Interpretation: OverweightBody Surface Area (BSA): 2.11Weight Management Education Done (Nutrition/Physical Activity)Vital SignsTemperature: 97.0F tympanic Pulse Rate: 67 beats/minuteRespiratory Rate: 16 respirations/minuteBlood Pressure: 117/74 right arm sitting automaticO2 Saturation: 98% Vital Signs performed by: Jeovanny Monsalve MA, May 01, 2020 10:22 AMInitial Intake Information From: patientRoom #: 9Infectious Disease / Travel ScreeningRecent travel for you or any close contacts? NoHave you had any close contact with anyone diagnosed with or under investigation for COVID-19 (coronavirus)? NoFever? NoRespiratory symptoms: cough, cold, congestion, shortness of breath, difficulty breathing? NoLoss of smell? NoLoss of taste? NoSmoking, Tobacco, Vaping or Smoke Exposure StatusSmoke Status: never smokerTobacco Use: NoDo you vape? NoHealthcare HistorySince your last office visit...Have you been to an emergency room (ER) or urgent care clinic? Yes - [facility] (cellulitis in L knee)Emergency room (ER) or urgent care date reported today: 04/21/2020Have you seen another healthcare provider? NoHave you seen a dentist? NoIntake performed by: Jeovanny Monsalve MA, May 01, 2020 10:01 AMRate Your HealthIn general, would you say your health is? GoodPain AssessmentAre you currently having any pain which... You would like your pr ovider to address? Yes Affects your activity level? NoPain AssessmentPain ScaleNumeric Rating Scale: Location: R shoulderOnset: 02/28/2020Duration: chronicFrequency: DailyCharacter/Quality: aching and stabbingIs the pain radiating? NoPRAPARE Sociodemographic Characteristics Race: White Ethnicity: Not or Preferred Language: EnglishFamily and Home Address: [address] [place] [address] What is your housing situation today? I have housing Are you worried about losing your housing? NoMoney and Resources What is the highest level of school that you have finished? some college Employed? Yes Your current work situation? FT [facility] the past year, have you or any family members you live with been unable to get any of the following when it was really needed? Denies Insecurity: food, utilities, clothing, childcare center director, phone, legal servicesIn the past year, have you had trouble affording costs associated with health insurance (such as deductibles, co-payments, etc.)? NoSocial and Emotional Health How often do you see or talk to people that you care about and feel close to? More than 5 times a week How stressed are you? Quite a bitAdditional Optional Domains In the past 3 months, have you spent more than 2 nights in a row in a retirement, fpc, [place] [facility] [place] center or juvenile correctional facility? No Has lack of transportation kept you from medical appointments or from getting your medications? NoIn the past year, have you had trouble getting any of the following when it was really needed (check all that apply)?health insuranceIn the past year, have you had trouble paying the costs associated with health care or medicine (such as co-payments, costs for services, prices of medicines)? NoHow confident are you that you can control and manage most of your health problems? Somewhat confident Are you a refugee? No (Country of origin: [place]) Do you feel physically and emotionally safe where you live? Yes In the past year, have you been afraid of a partner, ex-partner? NoScreening, Brief Intervention, & Referral to Treatment (SBIRT)Pre-Screening Questions How many times have you have 5 or more drinks in a day? 0How many times have you used an illegal drug or used a prescription medication for a non- medical reason? 0Performed by: Jeovanny Monsalve MA, May 01, 2020 10:08 AMPatient History Medical History:AllergiesSurgical History:noneFamily History:High Cholesterol (Father)Heart Disease (Father)Hand tremor (Maternal Grandmother)Social/Personal History: Nurses Note 29 yo male pt New PE, pt reports constant mild pain in R shoulder, pt requests future appt to address this pain.Pt reports [facility] L [facility] referral to Mental Health to address some recurring issuesPt requests referral to corporation lawyer for allergy skin test pleaseChief Complaintroutine physical exam/ New PEHistory of Present Illness (HPI)29 yo male with history allergic rhinits, bee allergy, possible depression, and right shoulder pain. Patient was seen at [facility] for cellulities of knee. Completing abx with almost complete resolution of symptoms. He did have an xray that was negative at the time of his visit. New onset bee allergy and enviromental allergies for which he would like to see an corporation lawyer for skin testing. He does currently have an epi pen. No bowel or bladder concerns. Follows a balanced diet. 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 Sleeps well. Does feel he has some underlying depression and minor anxiety for which he would like to get assessment and counseling. No SI/HI. Has never been formally diagnosed or treated for any mental illness. Patient has several month history of chronic right shoulder pain. Pain with overhead and push movement. No weakness, numbness, tingling in right upper extremity. Has taken naproxen with some benefit. Wondering what to do next. Had imaging from [facility] that was normal (not in record). No other concerns or complaints.Transitions of Care InboundMedication Reconciliation & ReviewMedication List was reviewed and/or updated during this visit, including review of any [id number] medications, herbal therapies, and/or supplements.Allergy ReviewAllergy List was reviewed and/or updated during this visit.Adult Preventive CareProvider Calculated and Reviewed all Clinical Protocols for patient today. Labs/Meds/Other Counseling- Nutrition and Physical Activity:BMI Interpretation: Overweight (05/01/2020) Counseling: Done (05/01/2020) Physical Activity: Done (05/01/2020)Review of Sys tems General: Denies loss of appetite, chills, dizziness, fatigue, fever, continued fever, headache, feeling ill, sweats, night sweats, sleep disturbances, weight loss. Eyes: Denies blurring of vision, double vision, irritation, discharge, vision loss, eye pain, eye swelling, droopy eyelid, sensitivity to light, redness, itching. Ears/Nose/Throat: Denies earache, ear discharge, ringing in ears, decreased hearing, nasal congestion, nosebleeds, runny nose, sore throat, hoarseness, difficulty swallowing, dry mouth, tooth pain, bleeding gums, swollen glands. Cardiovascular: Denies chest pain, palpita tions, feeling faint, trouble breathing w/exertion, SOB upon lying down, SOB at night, peripheral edema, elevated blood pressure, decreased heart rate. Respiratory: Denies cough, difficulty breathing, shortness of breath, excessive sputum, coughing up blood, wheezing, chest pain. Gastrointestinal: Denies nausea, vomiting, bleeding, burning, itching, irritation, cramps, diarrhea, bloody diarrhea, watery diarrhea, constipation, pain or discomfort, feeling any lumps or bumps, pain with BM, pain during receptive anal sex, change in bowel habits, fecal incontinence, abdominal pain, blood in stool, black or tarry stools, jaundice, heartburn, urge to defecate. Musculoskeletal: Denies back pain, joint pain, leg pain, other pain-see comments, joint swelling, body aches, muscle aches, muscle cramps, muscle weakness, stiffness, recent injury. Skin: Denies rash, hives, redness, itching, dryness, nail changes, suspicious lesions, athlete's foot, rash on palms, rash on bottom of feet. Neurologic: Denies muscle impairment, weakness, numbness/tingling, seizures, slurred speech, feeling faint, tremors, vertigo, paralysis on one side, paralysis on both sides. Psychiatric: Complains of depression. Denies anxiety, memory loss, mental disturbance, suicidal ideation, homicidal ideation, hallucinations, paranoia, feeling stressed, hearing voices. Endocrine: Denies cold intolerance, heat intolerance, excessive thirst, excessive hunger, excessive urination, weight loss, weight gain. Heme/Lymphatic: Denies abnormal bruising, bleeding, enlarged lymph nodes. Allergic/Immunologic: Denies hives, swelling, hay fever, persistent infections, HIV/STI exposure. Physical ExamGeneral Appearance: well nourished, well hydrated, no acute distressEyes, External: conjunctivae and lids normal, EOMIExternal Ears: normal, no lesions or deformitiesHearing: grossly intactOtoscopy: canals clear, tympanic membranes intact, no fluid, light reflex intact bilaterallyExternal Nose: normal, no lesions or deformitiesNasal: mucosa, septum, and turbinates normal, nares patentPharynx: tongue normal, posterior pharynx without erythema or exudate, no thrush/aphthous ulcerRespiratory, Auscultation: clear to auscultation bilaterally; no rales, rhonchi, or wheezesRespiratory, Effort: no intercostal retractions or use of accessory musclesCardiovascular, Auscultation: S1, S2 audible; no murmur, rub, or gallop; RRRPeripheral Circulation: no clubbing, cyanosis, edema, or varicositiesAbdomen: soft, non-tender, no masses, bowel sounds normalGait & Station: normalLower Extremity, Left: Left Knee: ROM intact. No edema, erythema, warmth.Skin, Inspection: no rashes, lesions, or ulcerationsCervical Nodes: no adenopathyCranial Nerves: II - XII grossly intactGait: normalOrientation: oriented to time, place, and personMood & Affect: no depression, anxiety, or agitationJudgment & Insight: intactCare Management Plan Transitions of CareInboundRate Your HealthIn general, would you say your health is? GoodAssessment & Plan Problems:Added: Shoulder joint pain, right (ICD-719.41) (NPT42-R81.511) Assessment: will refer for PT, has had xray through UC (not in chart, will obtain), pt states normal xray. likely tendinitis? will follow up after PTEncounter for other general examination (NJZ80-Y50.8) Assessment: Health maintenance up to date. Overall doing well. Discussed healthy lifestyle choices. Declines flu vaccine. Due for tetanus in 1 year.Depression (ICD-311) (GLX98-Y84.9) Assessment: has not had formal diagnosis, will get into mental healthBee sting allergy (ICD-989.5) (KWF08-E64.030) Assessment: recent anaphylactic reaction, wants to see allergistAllergic rhinitis (ICD-477.9) (NOP19-Z24.9) Assessment: new onset environmental, patient would like testing, referral startedCellulitis, knee (ICD-682.6) (SSS74-M62.119) Assessment: resolving, discussed signs and symptoms that would warrant ED eval vs regular follow up. copmlete abx course from .Assessment not Saved Shoulder joint pain; right (LWP69-X42.511): Comment Onlywill refer for PT, has had xray through [facility] (not in chart, will obtain), pt states normal xray. likely tendinitis? will follow up after PTMedications:ANAPROX DS TABLETMedication Changes:Added: ANAPROX DS TABLETAllergies:* SEASONAL ALLERGIES (Critical)* BEE STINGS (Severe)AMOXICILLIN (Moderate)Orders:Allergy Consult [CPT-59757] Mental Health Consult [CPT-73128] Physical Therapy Consult [CPT-78922] Preventive, New, (18- 39) [CPT-08644] Adult - Ofc Vst, NEW, Level II [CPT-23380] Follow-Up Return to clinic: in 30 days for follow upAdditional Follow-Up: shoulder pain Name Value Range Interpretation Code Description Data Silvia rce(s) Supporting Document(s) ID Date Data Source [id number] 09/07/2019 12:00:00 AM EST [facility] Jennifer Beach MD Patient Name: HOPE [id number] [facility] Date of : 1990[place] [address] Date of Exam: 09/07/2019#: Fax: [phone] EXAM: MRI ANKLE LEFT WITHOUT CONTRASTCLINICAL INFORMATION: Left ankle injury.TECHNIQUE:3T multiplanar MRI imaging of the left ankle was obtained using varioussequences.COMPARISON: Xray 09/02/19 at [facility].FINDINGS:The marrow signal of the distal tibia and fibula is without fracture, bonebruise or focal lesion. The talus and calcaneus are without bone bruise orfracture. Subtalar joints align normally. There is an ankle jointeffusion more posterior than anterior to the ankle joint proper. There isalso fluid posterior to the posterior subtalar joint. The Achilles tendonshows no abnormal thickening or tear. There is edema in the Achilles fatpad. The PT and FDL tendons appear grossly intact. The FHL tendon showsabundant fluid adjacent to it related to the joint effusion. The AT, EHLand EDL tendons are intact. There is abnormal t hickening and someincreased signal in the peroneus longus tendon above and below its coursedeep to the tip of the distal fibula. There is some minimal increasedsignal suggested within the peroneus brevis tendon distal to the distalfibula as it courses anteriorly. Insertions of both of those tendons wereunremarkable. I do not see significant fluid along the course of thosetendons. However, the anterior talofibular ligament shows some attenuationsuggesting strain or partial tear and adjacent fluid. Posteriortalofibular and calcaneofibular ligaments also show strain or partial tear. The anterior tibiofibular ligament was intact. Deltoid ligament withoutdefinite tear. Marrow signal of the tarsal bones and visualized portionsof the proximal metatarsals intact. No definite heel spurs. The morti sejoint was symmetric and preserved with no talar dome osteochondral defect.IMPRESSION:1. There is abnormal thickening and some intrasubstance increased signalof the peroneus longus tendon both above and below its course inferior tothe lateral malleolar tip. This suggest some significant tendinopathy andType I intrasubstance tear is suspected.2. Some tendinopathy of the distal course of the peroneus brevis tendonwithout definite tear and both peroneal tendons with intact insertions andwithout significant fluid along the tendon sheath.3. Periarticular effusion both anterior and posterior to the ank le withinjuries suggested anterior and posterior talofibular and calcaneofibularligament.4. Anterior tibiofibular ligament and deltoid ligaments grossly intact.5. No bone bruise or fracture. The PT, FDL, FHL, AT, EHL and EDL tendonsall grossly intact.6. Achilles tendon intact. There is some mild edema in the Achilles fatpad.Accredited by the [employer] in [place].Morris Powers, MDPJL/Suhas you for referring DAVID WHITING to our office. Electronically Signed - MORRIS POWERS MD 09/09/19 16:20 Name Value Range Interpretation Code Description Data Silvia rce(s) Supporting Document(s) Procedure Social History Code Duration Value Status Description Data Source(s ) Smoking 07/10/2020 12:00:00 AM EST Patient has never smoked co mpleted Patient has never smoked [facility] ([facility] ) Vital Signs ID Date Data Source UNK Name Value Range Interpretation Code Description Data Source(s) Body temperature 97.1 [degF] 97.1 [degF] [facility] ([facility]) Body mass index (BMI) [Ratio] 28.7 kg/m2 28.7 k g/m2 [facility] ([facility]) Body weight 200.00 [lb_av] 200.00 [lb_av] MEDEN T ([facility]) Body height 70 [in_i] 70 [in_i] [facility] ([facility]) 5'10" Body temperature 98.2 [degF] 98.2 [degF] [facility] ([facility]) Body mass index (BMI) [Ratio] 27.5 kg/m2 27.5 k g/m2 [facility] ([facility]) Diastolic blood pressure 64 mm[Hg] 64 mm[Hg] [facility] ([facility]) Systolic blood pressure 114 mm[Hg] 114 mm[Hg] M EDENT ([facility]) Respiratory rate 16 /min 16 /min [facility] ( [facility]) Heart rate 76 /min 76 /min [facility] ([facility] Body height 71 [in_i] 71 [in_i] MED[facility] ([facility] 5'11" Body weight 197.00 [lb_av] 197.00 [lb_av] MEDEN T ([facility]) Body weight 3206.4 [oz_av] 3206.4 [oz_av] ATHEN A ([facility]) Systolic blood pressure 126 mm[Hg] 126 mm[Hg] A THENA ([facility]) Body mass index (BMI) [Ratio] 28.8 kg/m2 28.8 k g/m2 AGAPITO ([facility]) Body height 70 [in_i] 70 [in_i] AGAPITO ([facility]) Diastolic blood pressure 81 mm[Hg] 81 mm[Hg] AGAPITO ([facility]) Body weight 3206.4 [oz_av] 3206.4 [oz_av] ATHEN A ([facility]) Systolic blood pressure 126 mm[Hg] 126 mm[Hg] A THENA ([facility]) Body mass index (BMI) [Ratio] 28.8 kg/m2 28.8 k g/m2 AGAPITO ([facility]) Body height 70 [in_i] 70 [in_i] AGAPITO ([facility]) Diastolic blood pressure 81 mm[Hg] 81 mm[Hg] AGAPITO ([facility]) Body mass index (BMI) [Ratio] 27.2 kg/m2 27.2 k g/m2 [facility] ([facility]) Diastolic blood pressure 70 mm[Hg] 70 mm[Hg] [facility] ([facility]) Systolic blood pressure 110 mm[Hg] 110 mm[Hg] M EDENT ([facility]) Respiratory rate 18 /min 18 /min [facility] ( [facility]) Heart rate 69 /min 69 /min [facility] ([facility] Body height 71 [in_i] 71 [in_i] MEDENT ([facility] 5'11" Body weight 195.00 [lb_av] 195.00 [lb_av] MEDEN T ([facility]) Body mass index (BMI) [Ratio] 25.8 kg/m2 25.8 k g/m2 [facility] ([facility]) Body weight 180.00 [lb_av] 180.00 [lb_av] MEDEN T ([facility]) Body height 70 [in_i] 70 [in_i] [facility] ([facility]) 5'10" Body temperature 97.9 [degF] 97.9 [degF] [facility] ([facility]) Body mass index (BMI) [Ratio] 25.0 kg/m2 25.0 k g/m2 [facility] ([facility]) Body weight 180.38 [lb_av] 180.38 [lb_av] MEDEN T ([facility]) Patient Treatment Plan of Care Planned Activity Planned Date Details Description Data Source (s) Naproxen 500 MG Oral Tablet AGAPITO ([facility]) doxycycline hyclate 100 MG Oral Tablet AGAPITO ([facility]) Naproxen 500 MG Oral Tablet AGAPITO ([facility]) doxycycline hyclate 100 MG Oral Tablet AGAPITO ([facility])
[2020-09-10] MEDS ORDERED: ACET325C5 PO (13:41)
[2020-09-10] MEDS ORDERED: LEVOTAB10 (13:41)
[2020-09-10] MEDS ORDERED: FLUTISP (13:41)
--- OUTSIDE RECORDS SUMMARY | 2020-09-10 14:35 | CCD ---
Author Author [facility] Organization [facility] Address Unknown Phone Unavailable Care Team Providers Care Objects Conservator Name Role Phone Edita Ann Unavailable Unavailable [...] Ann Unavailable Unavailable Washington Ann Unavailable Unavailable Scordo, [...] EDITA Unavailable Unavaila ble Rosi Yue Unavailable [phone] Cristy Kimbrough MD Unavailable Unavailable Cristy Kimbrough [...] is protected by Article 27-F of the [facility] Public Health law. If you continue you may have access to information: Regarding HIV / AIDS; Provided by facilities licensed or operated by the [facility] Office of Mental Health; or Provided by the [facility] Office for People With Developmental Disabilities. If such information is present, then the following [facility] mandated warning applies: This information has [...] law may result in a fine or fpc sentence or both. A general authorization for the release of medical or other information is NOT sufficient authorization for further disc losure. Allergies and Adverse Reactions Type Description Substance Reaction Status Data Source(s ) Miscellaneous allergy SEASONAL ALLERGIES SEASONAL ALLERGIES [facility] Drug allergy AMOXICILLIN AMOXICILLIN [facility] Miscellaneous allergy BEE STINGS BEE STINGS Hives [facility] Allergy to substance Allergy to substance Allergy to substance [facility] ([facility]) Encounters Encounter Providers Location Date Indications Data Source(s ) Outpatient Attender: Cristy Kimbrough MD Physical Therap y 07/24/2020 08:30:00 AM EST [facility] ([facility]) Outpatient Attender: MICHAEL HENDRIX MD Main Office 07/10/2020 08:00:00 AM EST [facility] ([facility] RASHMI RossC: [address] [place] [address], Ph. Attender: Edita ALVAREZ [facility] Medical 06/23/2020 12:00:00 AM EST [facility] ([facility]) Edita Ann PA-C: [address] [place] [address], Ph. Attender: Edita ALVAREZ [facility] Medical 06/23/2020 12:00:00 AM EST [facility] ([facility]) Yue Aranda, CORPORATE DIRECTOR OF HUMAN RESOURCES-R: [address], [place] [address], Ph. Attender: Yue Aranda [facility] Medical 06/22/2020 12:00:00 AM EST [facility] ([facility]) Yue Aranda, CORPORATE DIRECTOR OF HUMAN RESOURCES-R: [address], [place] [address], Ph. Attender: Yue Aranda [facility] Medical 06/22/2020 12:00:00 AM EST [facility] ([facility]) Yue Aranda, CORPORATE DIRECTOR OF HUMAN RESOURCES-R: [address], [place] [address], Ph. Attender: Yue Aranda [facility] Medical 06/16/2020 12:00:00 AM EDT [facility] ([facility]) Yue Aranda, CORPORATE DIRECTOR OF HUMAN RESOURCES-R: [address], [place] [address], Ph. Attender: Yue Aranda [facility] Medical 06/16/2020 12:00:00 AM EDT [facility] ([facility]) Yue Aranda, CORPORATE DIRECTOR OF HUMAN RESOURCES-R: [address], [place] [address], Ph. Attender: Yue Aranda [facility] Medical 06/16/2020 12:00:00 AM EDT [facility] ([facility]) Outpatient Attender: MICHAEL HENDRIX MD Main Office 06/04/2020 08:30:00 AM EDT [facility] ([facility]) Outpatient Attender: KIM CEE 06/01/2020 08:01:01 PM EDT [facility] Outpatient Attender: [facility] 06/01/2020 02:42:00 PM EDT [facility] Outpatient Attender: KIM CEE 05/25/2020 08:01:02 PM EDT [facility] Outpatient Attender: KIM CEE 05/25/2020 04:40:01 PM EDT [facility] Outpatient Attender: KIM CEE 05/25/2020 03:26:01 PM EDT [facility] Outpatient Attender: KIM CEE 05/19/2020 05:38:02 PM EDT [facility] Outpatient Attender: SOLANGE CHAND JAYE 05/19/2020 05:38:02 PM EDT [facility] Outpatient Attender: KIM CEE 05/14/2020 04:23:01 PM EDT [facility] Outpatient Attender: KIM CEE 05/13/2020 12:08:00 PM EDT [facility] Outpatient Attender: KIM CEE 05/04/2020 07:29:00 AM EDT [facility] Outpatient Attender: KIM CEE 05/02/2020 12:00:11 AM EDT [facility] Outpatient Attender: SOL[facility] 05/01/2020 08:01:06 PM EDT [facility] Outpatient Attender: KIM CEE 05/01/2020 08:01:02 PM EDT [facility] Outpatient Attender: KIM CEE 05/01/2020 11:08:00 AM EDT [facility] Outpatient Attender: SOLANGE [facility] 05/01/2020 11:07:00 AM EDT [facility] Outpatient Attender: KIM CEE 05/01/2020 09:40:01 AM EDT [facility] Outpatient Attender: KIM CEE 05/01/2020 09:38:01 AM EDT [facility] Outpatient Attender: KIM CEE 05/01/2020 09:37:00 AM EDT [facility] Outpatient Attender: KIM CEE 05/01/2020 09:34:00 AM EDT [facility] Outpatient Attender: KIM CEE 04/24/2020 05:00:01 PM EDT [facility] Outpatient Attender: KIM CEE 04/24/2020 01:43:02 PM EDT [facility] Outpatient Attender: KIM CEE 04/24/2020 01:42:01 PM EDT [facility] Outpatient Referrer: JENNIFER BEACH MD 09/17/2019 01:23:0 0 PM EST [facility] Outpatient Attender: JENNIFER BEACH MD Physical Therapy 08:15:00 AM EST [facility] ([facility]) Outpatient Referrer: JENNIFER BEACH [...] Radiology Imaging Outpatient 09/05/2019 03:58:00 PM EST [facility] Outpatient Attender: JENNIFER BEACH MD Physical Therapy 08:30:00 AM EST [facility] ([facility]) Medications Medication Brand Name Start Date Product Form Dose Route Admi nistrative Instructions Pharmacy Instructions Status Indications Reaction Description Data Source(s) levocetirizine dihydrochloride 5 MG Oral Tablet Levocetirizi ne Dihydrochloride 07/10/2020 12:00:00 AM EST ORAL active [facility] ([facility]) Fluticasone Propionate Fluticasone Propionate 07/10/2020 12:00:[address] active [facility] ([facility] No Active Medications 06/04/2020 12:00:00 AM EDT completed [facility] ([facility]) Ibuprofen 800 MG Oral Tablet Ibuprofen 09/02/2019 12:00:00 AM EST active [facility] ([facility] ) Epinephrine Epinephrine 04/17/2019 12:00:00 AM EDT completed [facility] ([facility] ) doxycycline hyclate 100 MG Oral Tablet doxycycline hyc late 100 mg tablet doxycycline hyclate 100 mg tablet comp leted doxycycline hyclate 100 MG Oral Tablet [facility] ([facility]) doxycycline hyclate 100 MG Oral Tablet doxycycline hyc late 100 mg tablet doxycycline hyclate 100 mg tablet comp leted doxycycline hyclate 100 MG Oral Tablet [facility] ([facility]) Naproxen 500 MG Oral Tablet naproxen 500 mg tablet naproxen 500 mg ta blet completed naproxen 500 MG Oral Tablet [facility] ([facility]) Naproxen 500 MG Oral Tablet naproxen 500 mg tablet naproxen 500 mg ta blet completed naproxen 500 MG Oral Tablet [facility] ([facility]) Insurance Providers Payer name Policy type / Coverage type Policy ID Covered green party ID Covered green party's relationship to barboza Policy Barboza Plan Information [facility] [id number] SP [id number] SELF PAY ONLY [id number] SP [id number] Managed Care - [facility] P [id number] S [id number] Medicaid S [id number] S [id number] Managed Care - [facility] P [id number] S [id number] Medicaid S [id number] S [id number] [facility] P [id number] S [id number] [facility] P [id number] S [id number] O UNAVAILABLE UNAVAILA BLE SELF PAY O UNAVAILABLE S UNAVAILA BLE [facility] O [id number] S [id number] UN COMMUNITY PLAN [facility] [id number] SP [id number] [facility] COMMUNITY PLAN [facility] [id number] SP [id number] [facility] COMMUNITY PLAN [facility] [id number] SP [id number] [facility] [id number] SP [id number] [facility] P [id number] S [id number] [facility] [id number] FA2 [id number] Problems, Conditions, and Diagnoses Code Display Name Description Problem Type Effective Dates Data Source(s) Toxic effect of venom of hor nets, accidental (unintentional), initial encounter Toxic effect of venom of hornets, accide ntal (unintentional), initial encounter Problem 07/10/2020 12:00:00 AM EST [facility] ([facility]) 10233528 Allergic rhinitis due to animals Allergic rhinit is due to animals Problem 07/10/2020 12:00:00 AM EST [facility] ([facility]) Note: 4++ positive reaction to cat dand er and 4+ positive reaction to dog dander on intradermal test. Currently exposed to 2 cats in the home. [id number] Allergic rhinitis due to pollen Allergic rhiniti [...] (guillermo, cottonwood, elm, pine) on intradermal test. [id number] Allergic rhinitis caused by mold Allergi c rhinitis caused by mold Problem 07/10/2020 12:00:00 AM EST [facility] ([facility]) Note: 4++ reaction to dust mites on scra tch test. 3+ reaction to mold spores on intradermal test. 055322006 Allergic rhinitis due to house dust mite Allergic rhinitis due to house dust mite Problem 07/10/2020 12:00:00 AM EST [facility] ([facility]) Note: 4++ reaction to dust mites on scra tch test. 3+ reaction to mold spores on intradermal test. 320200030 Wasp sting-induced anaphylaxis Wasp sting-induced anap hylaxis Problem 06/04/2020 12:00:00 AM EDT [facility] ([facility] ) Note: 3+ positive reaction to wasp at 0 .001 mcg/ml dilution. 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 3+ positive reaction yellow hornet at 0.01 mcg/ml dilution. [id number] Bee sting-induced anaphylaxis Bee sting-induced anaphy laxis Problem 06/04/2020 12:00:00 AM EDT [facility] ([facility] ) Note: 3+ positive reaction to honey bee at 1 mcg/ml dilution. 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 DEPRESSIVE DISORDER, MAJOR, RECURRENT EPISODE, SEVERE 05/19/2020 05:37:59 PM EDT [facility] L03.119 Cellulitis of unspecified part of limb Cellulitis, kne e 05/01/2020 11:06:41 AM EDT [facility] Z00.8 Encounter for other general examination Encounter for other general examination 05/01/2020 11:06:41 AM EDT [facility] 719.41 Shoulder joint pain, right Shoulder joint pain, right 05/01/2020 11:06:41 AM EDT [facility] 311 Depression Depression 05/01/2020 11:06:41 AM ED T [facility] 989.5 Bee sting allergy Bee sting allergy 05/01/2020 11:06:41 AM EDT [facility] 477.9 Allergic rhinitis Allergic rhinitis 05/01/2020 11:06:41 AM EDT [facility] Surgeries/Procedures Procedure Description Date Indications Data Source(s) MRI Upper Extremity Any Joint 07/31/2020 12:00:[address] [facility] ([facility]) PERCUTANEOUS TESTS W/ALLERGENIC EXTRACTS 07/10/2020 12 :00:00 AM EST [facility] ([facility]) INTRACUTANEOUS TESTS W/ALLERGENIC EXTRACTS 07/10/2020 12:00:00 AM EST [facility] ([facility]) Allergy Testing Any Combination Percutaneous W/Venom 06/04/2020 12:00:00 AM EDT [facility] ([facility]) Results ID Date Data Source [id number] 07/01/2020 12:00:00 AM EST [facility] Name Value Range Interpretation Code Description Data Silvia rce(s) Supporting Document(s) SARS coronavirus 2 RNA [Presence] in Res piratory specimen by ITZEL with probe detection [facility] This lab was ordered by Lesley Hall and reported by [facility]. ID Date Data Source [id number] 05/01/2020 09:55:36 AM EDT [facility] Measurements & CalculationsHeight: 70 inches (5 ft. [...] (ER) or urgent care clinic? Yes - [facility] (cellulitis in L knee)Emergency room (ER) [...] or Preferred Language: EnglishFamily and Home Address: [address] [place] [address] What is your housing situation today? I have housing Are you worried about losing your housing? NoMoney and Resources What is the highest level of school that you have finished? some college Employed? Yes Your current work situation? FT [facility] past year, have you or any family members you live with been unable to get any of the following when it was really needed? Denies Insecurity: food, utilities, clothing, children's tutor nursery, phone, legal servicesIn the past year, have [...] 2 nights in a row in a fpc, penitentiary, senior living center or juvenile correctional facility? No Has [...] [facility] L [facility] requests referral to Mental Health to address some recurring issuesPt requests referral to selling specialist for allergy skin test pleaseChief Complaintroutine physical exam/ New PEHistory of Present Illness (HPI)29 yo male with history allergic rhinits, bee allergy, possible depression, and right shoulder pain. Patient was seen at [facility] for cellulities of knee. Completing abx with almost complete resolution of symptoms. He did have an xray that was negative at the time of his visit. New onset bee allergy and enviromental allergies for which he would like to see an selling specialist for skin testing. He does currently have [...] what to do next. Had imaging from [facility] that was normal (not in record). No other concerns or complaints.Transitions of Care InboundMedication Reconciliation & ReviewMedication List was reviewed and/or updated during this visit, including review of any [id number] medications, herbal therapies, and/or supplements.Allergy ReviewAllergy List [...] Plan Problems:Added: Shoulder joint pain, right (ICD-719.41) (JRP89-N52.511) Assessment: will refer for PT, has had xray through [facility] (not in chart, will obtain), pt states normal xray. likely tendinitis? will follow up after PTEncounter for other general examination (DTB95-V12.8) Assessment: Health maintenance up to date. Overall doing well. Discussed healthy lifestyle choices. Declines flu vaccine. Due for tetanus in 1 year.Depression (ICD-311) (UWQ50-Z13.9) Assessment: has not had formal diagnosis, will get into mental healthBee sting allergy (ICD-989.5) (VGY90-E38.030) Assessment: recent anaphylactic reaction, wants to see allergistAllergic rhinitis (ICD-477.9) (PWE34-J60.9) Assessment: new onset environmental, patient would like testing, referral startedCellulitis, knee (ICD-682.6) (JAM62-D27.119) Assessment: resolving, discussed signs and symptoms that would warrant ED eval vs regular follow up. copmlete abx course from .Assessment not Saved Shoulder joint pain; right (WNL13-J95.511): Comment Onlywill refer for PT, has had xray through [facility] (not in chart, will obtain), pt states normal xray. likely tendinitis? will follow up after PTMedications:ANAPROX DS TABLETMedication Changes:Added: ANAPROX DS TABLETAllergies:* SEASONAL ALLERGIES (Critical)* BEE STINGS (Severe)AMOXICILLIN (Moderate)Orders:Allergy Consult [CPT-49205] Mental Health Consult [CPT-75474] Physical Therapy Consult [CPT-00742] Preventive, New, (18- 39) [CPT-31709] Adult - Ofc Vst, NEW, Level II [CPT-10566] Follow-Up Return to clinic: in 30 days for follow upAdditional Follow-Up: shoulder pain Name Value Range Interpretation Code Description Data Silvia rce(s) Supporting Document(s) ID Date Data Source [id number] 09/07/2019 12:00:00 AM EST [facility] Jennifer Beach MD Patient Name: HOPE [id number] [facility] Date of : 1990[place] [address] Date of Exam: 09/07/2019PH#: Fax: [phone] EXAM: MRI ANKLE LEFT WITHOUT CONTRASTCLINICAL INFORMATION: Left ankle injury.TECHNIQUE:3T multiplanar MRI imaging of the left ankle was obtained using varioussequences.COMPARISON: Xray 09/02/19 at [facility].FINDINGS:The marrow signal of the distal tibia [...] edema in the Achilles fatpad.Accredited by the [employer] in MR.Morris Powers, GAMAJL/Suhas you for referring DAVID WHITING to our office. Electronically Signed - MORRIS POWERS MD 09/09/19 16:20 Name Value Range Interpretation Code Description Data Silvia rce(s) Supporting Document(s) Procedure Social History Code Duration Value Status Description Data Source(s ) Smoking 07/10/2020 12:00:00 AM EST Patient has never smoked co mpleted Patient has never smoked [facility] ([facility] ) Vital Signs ID Date Data Source UNK Name Value Range Interpretation Code Description Data Source(s) Body temperature 97.1 [degF] 97.1 [degF] [facility] ([facility]) Body mass index (BMI) [Ratio] 28.7 kg/m2 28.7 k g/m2 [facility] ([facility]) Body weight 200.00 [lb_av] 200.00 [lb_av] MEDEN T ([facility]) Body height 70 [in_i] 70 [in_i] [facility] ([facility]) 5'10" Body temperature 98.2 [degF] 98.2 [degF] [facility] ([facility]) Body mass index (BMI) [Ratio] [...] weight 3206.4 [oz_av] 3206.4 [oz_av] ATHEN A ([facility]) Systolic blood pressure 126 mm[Hg] 126 mm[Hg] A THENA ([facility]) Body mass index (BMI) [Ratio] 28.8 kg/m2 28.8 k g/m2 [facility] ([facility]) Body height 70 [in_i] 70 [in_i] [facility] ([facility]) Diastolic blood pressure 81 mm[Hg] 81 mm[Hg] [facility] ([facility]) Body weight 3206.4 [oz_av] 3206.4 [oz_av] ATHEN A ([facility]) Systolic blood pressure 126 mm[Hg] 126 mm[Hg] A THENA ([facility]) Body mass index (BMI) [Ratio] 28.8 kg/m2 28.8 k g/m2 [facility] ([facility]) Body height 70 [in_i] 70 [in_i] [facility] ([facility]) Diastolic blood pressure 81 mm[Hg] 81 mm[Hg] [facility] ([facility]) Body mass index (BMI) [Ratio] 27.2 kg/m2 [...] [facility] Body height 71 [in_i] 71 [in_i] [facility] 5'11" Body weight 195.00 [lb_av] 195.00 [lb_av] [facility] T ([facility] Body mass index (BMI) [Ratio] 25.8 kg/m2 25.8 k g/m2 [facility] ([facility] Body weight 180.00 [lb_av] 180.00 [lb_av] MEDEN T ([facility] ) Body height 70 [in_i] 70 [in_i] [facility] ([facility] ) 5'10" Body temperature 97.9 [degF] 97.9 [degF] [facility] ([facility] ) Body mass index (BMI) [Ratio] 25.0 kg/m2 25.0 k g/m2 [facility] ([facility] ) Body weight 180.38 [lb_av] 180.38 [lb_av] MEDEN T ([facility] ) Patient Treatment Plan of Care Planned Activity Planned Date Details Description Data Source (s) Naproxen 500 MG Oral Tablet [facility] ([facility]) doxycycline hyclate 100 MG Oral Tablet [facility] ([facility]) Naproxen 500 MG Oral Tablet [facility] ([facility]) doxycycline hyclate 100 MG Oral Tablet [facility] ([facility])
[2020-09-10] MEDS ORDERED: KETOROLAC 30 MG/ML 1ML VIAL IM ONE (15:00)
[2020-09-10] MEDS ORDERED: LIDOCAINE 5% (LIDODERM) PATCH TD ONE (15:00)
[2020-09-10] MEDS ORDERED: CYCLOBENZAPRINE 10MG TABLET PO ONE (15:00)
--- NOTE | 2020-09-10 15:16 | REP ---
INDICATION: midline pain. COMPARISON: None. TECHNIQUE: Helical scanning is acquired and overlapping 2 mm high resolution axial images were generated and reviewed at bone and soft tissue window settings. Coronal and sagittal multiplanar re-formations images are generated. FINDINGS: There is no evidence of cervical spine element fracture. No skull base fracture is seen. Cervical vertebral body heights are preserved. Alignment is normal. Facet joints are normally aligned bilaterally at each cervical level on multiplanar re-formations images. There is no evidence of intraspinal or paraspinal hematoma. No extra vertebral abnormality is seen. There is a minimal levoconvex curve in the cervical spine on coronal MPR images. IMPRESSION: Negative CT study of the cervical spine without contrast. No fracture seen. <Electronically signed by Jaspal Bird > 09/10/20 [id number]
--- NOTE | 2020-09-10 15:19 | REP ---
INDICATION: midline pain. COMPARISON: Comparison is made with radiographs from May 21, 2013.. TECHNIQUE: Helical scanning is acquired and 4 mm axial images are generated. Coronal and sagittal MPR images are provided. FINDINGS: Thoracic vertebral body heights are preserved. Alignment is normal. Disc spaces are maintained. No fracture or collapse is seen. Pedicles and posterior elements are intact. No bony destructive lesion is seen. No neural foraminal abnormality is observed. No evidence of bony spinal canal stenosis. The visualized lung marlow are clear. Posterior paraspinal musculature is unremarkable. IMPRESSION: Negative CT study of the thoracic spine. <Electronically signed by Jaspal Bird > 09/10/20 [id number]
[2020-09-10] MEDS ORDERED: CYCL5TAB PO (15:46)
[2020-09-10] MEDS ORDERED: LIDO5DIS41 TOP (15:46)
[2020-09-10] MEDS ORDERED: IBUP80TA PO (15:50)
[2020-09-10 15:59] VITALS: BP 116/74
[2020-09-10] MEDS ORDERED: **NOTE PATIENT COMMENT** MISC XX SCH (21:00)
== END 2020-09-10 16:00 | disposition home or self-care (01) ==
LOC: M ED 13:31
DX: S29.012A Strain of muscle and tendon of back wall of thorax, initial encounter (principal); S23.3XXA Sprain of ligaments of thoracic spine, initial encounter; X58.XXXA Exposure to other specified factors, initial encounter; Y92.89 Other specified places as the place of occurrence of the external cause; Z88.0 Allergy status to penicillin; Z91.030 Bee allergy status
CPT/HCPCS: 72125; 72128; 96372; 99283; J1885

== ENCOUNTER → 2022-03-30 | Outpatient (REF) | payer OTHER ==
[~2022-03-30] MED LIST changes: +ACET325C5 PO; +CYCL5TAB PO; +FLUTISP; +LEVOTAB10; +LIDO5DIS41 TOP
== END ==
LOC: M SMT 17:08
PROVIDERS: ATTEND Urology
DX: Z30.2 Encounter for sterilization (principal)

== ENCOUNTER → 2022-07-26 | Outpatient (REF) | payer OTHER ==
[2022-07-26 18:06] LABS: BASO # 0.1 10^3/uL (0.0-0.2); BASO % 1.1 % (0.0-1.0); EOS # 0.4 10^3/uL (0.0-0.5); EOS % 7.5 % (0.0-3.0); HEMATOCRIT 43.7 % (42.0-52.0); LYMPH # 1.7 10^3/uL (1.5-5.0); LYMPH % 32.7 % (24.0-44.0); MEAN CORPUSCULAR HEMOGLOBIN 31.1 pg (27.0-33.0); MEAN CORPUSCULAR HGB CONC 34.3 g/dl (32.0-36.5); MEAN CORPUSCULAR VOLUME 90.7 fl (80.0-96.0); MONO # 0.4 10^3/uL (0.0-0.8); MONO % 7.8 % (2.0-8.0); NEUTROPHILS # 2.7 10^3/uL (1.5-8.5); NEUTROPHILS % 50.7 % (36.0-66.0); PLATELET COUNT, AUTOMATED 255 10^3/uL (150-450); RED BLOOD COUNT 4.82 10^6/uL (4.30-6.10); WHITE BLOOD COUNT 5.2 10^3/uL (4.0-10.0)
[2022-07-26 18:18] LABS: ALBUMIN 3.7 G/DL (3.2-5.2); ALKALINE PHOSPHATASE 80 U/L (46-116); ALT/SGPT 29 U/L (7.0-40); AST/SGOT 15 U/L (<34); BILIRUBIN,TOTAL 0.7 MG/DL (0.3-1.2); BLOOD UREA NITROGEN 15 MG/DL (9-23); CALCIUM LEVEL 9.2 MG/DL (8.5-10.1); CARBON DIOXIDE LEVEL 26 MMOL/L (20-31); CHLORIDE LEVEL 106 MMOL/L (98-107); CHOLESTEROL LEVEL 161 MG/DL (<200); CHOLESTEROL RISK RATIO 4.27 (<5); CREATININE FOR GFR 0.94 MG/DL (0.70-1.30); GLOMERULAR FILTRATION RATE > 60.0 (>60); GLUCOSE, FASTING 92 MG/DL (60-100); HDL CHOLESTEROL 37.7 MG/DL (>40); LDL CHOLESTEROL 102.1 MG/DL (<100); NON-HDL-C 123 MG/DL; POTASSIUM SERUM 4.7 MMOL/L (3.5-5.1); SODIUM LEVEL 138 MMOL/L (136-145); TOTAL 25(OH) VITAMIN D 26.7 NG/ML (20.0-100.0); TOTAL PROTEIN 6.8 G/DL (5.7-8.2); TRIGLYCERIDES LEVEL 106 MG/DL (<150)
== END ==
LOC: M LAB REF 16:36
PROVIDERS: ATTEND Nurse Practitioner Family
DX: E66.3 Overweight (principal)

== ENCOUNTER → 2022-11-22 | Outpatient (REF) | payer OTHER ==
[~2022-11-22] MED LIST changes: +FLUT50SP17; -FLUTISP
[2022-11-22 16:40] LABS: CHOLESTEROL RISK RATIO 4.57 (<5); HDL CHOLESTEROL 39.1 MG/DL (>40); LDL CHOLESTEROL 108.9 MG/DL (<100); NON-HDL-C 139.9 MG/DL
== END ==
LOC: M LAB REF 12:13
PROVIDERS: ATTEND Nurse Practitioner Family
DX: R79.89 Other specified abnormal findings of blood chemistry (principal)

== ENCOUNTER → 2023-04-12 | Outpatient (REF) | payer OTHER ==
[2023-04-12 18:30] LABS: CHOLESTEROL RISK RATIO 3.58 (<5); HDL CHOLESTEROL 41.3 MG/DL (>40); LDL CHOLESTEROL 92.5 MG/DL (<100); NON-HDL-C 106.7 MG/DL
== END ==
LOC: M LAB REF 16:38
PROVIDERS: ATTEND Nurse Practitioner Family
DX: R79.89 Other specified abnormal findings of blood chemistry (principal)

== ENCOUNTER → 2023-08-18 | Outpatient (REF) | payer OTHER ==
[~2023-08-18] MED LIST changes: -FLUT50SP17; +FLUTISP
[2023-08-18 13:48] LABS: SEMEN APPEARANCE OPAQUE (OPAQUE); SEMEN VISCOSITY LIQUID (LIQUID); WBC CONCENTRATION >1 M/ml (<=1 M/ml)
== END ==
LOC: M SMT 13:29
PROVIDERS: ATTEND Urology
DX: Z30.2 Encounter for sterilization (principal)

== ENCOUNTER → 2023-08-24 | Outpatient (REF) | payer OTHER ==
[2023-08-25 14:25] LABS: CHLAMYDIA DNA AMPLIFICATION NEGATIVE (NEGATIVE); GC DNA AMPLIFICATION NEGATIVE (NEGATIVE)
== END ==
LOC: M LAB REF 12:23
PROVIDERS: ATTEND Nurse Practitioner Family
DX: Z11.3 Encounter for screening for infections with a predominantly sexual mode of transmission (principal)

== ENCOUNTER → 2023-08-28 | Outpatient (REF) | payer OTHER ==
[2023-08-28 17:13] LABS: HIV 1&2 SCREEN NEGATIVE (NEGATIVE)
[2023-08-28 17:21] LABS: HEPATITIS C VIRUS ABY INDEX 0.03 INDEX (<0.8)
== END ==
LOC: M LAB REF 16:15
PROVIDERS: ATTEND Nurse Practitioner Family
DX: Z11.3 Encounter for screening for infections with a predominantly sexual mode of transmission (principal)

== ENCOUNTER → 2023-12-06 | Outpatient (REF) | payer OTHER ==
[2023-12-06 17:55] LABS: BASO # 0.1 10^3/uL (0.0-0.2); BASO % 1.4 % (0.0-1.0); EOS # 0.3 10^3/uL (0.0-0.5); EOS % 6.4 % (0.0-3.0); HEMATOCRIT 45.5 % (42.0-52.0); HEMOGLOBIN 15.7 g/dl (13.5-17.5); LYMPH # 1.9 10^3/uL (1.5-5.0); LYMPH % 38.6 % (24.0-44.0); MEAN CORPUSCULAR HEMOGLOBIN 30.9 pg (27.0-33.0); MEAN CORPUSCULAR HGB CONC 34.5 g/dl (32.0-36.5); MEAN CORPUSCULAR VOLUME 89.6 fl (80.0-96.0); MONO # 0.3 10^3/uL (0.0-0.8); MONO % 6.8 % (2.0-8.0); NEUTROPHILS # 2.3 10^3/uL (1.5-8.5); NEUTROPHILS % 46.6 % (36.0-66.0); PLATELET COUNT, AUTOMATED 234 10^3/uL (150-450); RED BLOOD COUNT 5.08 10^6/uL (4.30-6.10); WHITE BLOOD COUNT 4.9 10^3/uL (4.0-10.0)
[2023-12-06 18:26] LABS: ALBUMIN 3.5 G/DL (3.2-5.2); ALKALINE PHOSPHATASE 81 U/L (46-116); ALT/SGPT 49 U/L (7.0-40); AST/SGOT 27 U/L (<34); BILIRUBIN,TOTAL 0.4 MG/DL (0.3-1.2); BLOOD UREA NITROGEN 12 MG/DL (9-23); CALCIUM LEVEL 8.9 MG/DL (8.5-10.1); CARBON DIOXIDE LEVEL 28 MMOL/L (20-31); CHLORIDE LEVEL 107 MMOL/L (98-107); CHOLESTEROL LEVEL 114 MG/DL (<200); CHOLESTEROL RISK RATIO 2.92 (<5); CREATININE FOR GFR 0.95 MG/DL (0.70-1.30); GLOMERULAR FILTRATION RATE > 60.0 (>60); GLUCOSE, FASTING 96 MG/DL (60-100); LDL CHOLESTEROL 65.4 MG/DL (<100); POTASSIUM SERUM 4.8 MMOL/L (3.5-5.1); SODIUM LEVEL 138 MMOL/L (136-145); TOTAL 25(OH) VITAMIN D 25.5 NG/ML (20.0-100.0); TOTAL PROTEIN 6.8 G/DL (5.7-8.2); TRIGLYCERIDES LEVEL 48 MG/DL (<150)
== END ==
LOC: M LAB REF 16:14
PROVIDERS: ATTEND Nurse Practitioner Family
DX: Z13.228 Encounter for screening for other metabolic disorders (principal)

== ENCOUNTER → 2023-12-13 | Outpatient (CLI) | payer OTHER | LOC: M WUC 11:19 | PROVIDERS: ATTEND Nurse Practitioner Family | DX: M25.511 Pain in right shoulder (principal) ==

== ENCOUNTER → 2024-12-13 | Outpatient (REF) | payer OTHER ==
[~2024-12-13] MED LIST changes: -CYCL5TAB PO; +CYCL5TAB4 PO
[2024-12-13 14:45] LABS: BASO # 0.1 10^3/uL (0.0-0.2); EOS # 0.3 10^3/uL (0.0-0.5); EOS % 6.2 % (0.0-3.0); HEMATOCRIT 45.3 % (42.0-52.0); HEMOGLOBIN 15.5 g/dl (13.5-17.5); LYMPH # 1.5 10^3/uL (1.5-5.0); LYMPH % 31.6 % (24.0-44.0); MEAN CORPUSCULAR HEMOGLOBIN 31.3 pg (27.0-33.0); MEAN CORPUSCULAR HGB CONC 34.2 g/dl (32.0-36.5); MEAN CORPUSCULAR VOLUME 91.5 fl (80.0-96.0); MONO # 0.4 10^3/uL (0.0-0.8); MONO % 8.8 % (2.0-8.0); NEUTROPHILS # 2.6 10^3/uL (1.5-8.5); NEUTROPHILS % 52.4 % (36.0-66.0); PLATELET COUNT, AUTOMATED 242 10^3/uL (150-450); RED BLOOD COUNT 4.95 10^6/uL (4.30-6.10); WHITE BLOOD COUNT 4.9 10^3/uL (4.0-10.0)
[2024-12-13 15:16] LABS: ALBUMIN 3.7 G/DL (3.2-5.2); ALKALINE PHOSPHATASE 72 U/L (40-129); ALT/SGPT 31 U/L (7.0-40); AST/SGOT 15 U/L (<34); BILIRUBIN,TOTAL 0.5 MG/DL (0.3-1.2); BLOOD UREA NITROGEN 16 MG/DL (9-23); CALCIUM LEVEL 8.9 MG/DL (8.5-10.1); CARBON DIOXIDE LEVEL 28 MMOL/L (20-31); CHLORIDE LEVEL 106 MMOL/L (98-107); CHOLESTEROL LEVEL 133 MG/DL (<200); CHOLESTEROL RISK RATIO 3.37 (<5); CREATININE FOR GFR 0.85 MG/DL (0.70-1.30); GLOMERULAR FILTRATION RATE > 90.0 (>60); GLUCOSE, FASTING 98 MG/DL (60-100); HDL CHOLESTEROL 39.4 MG/DL (>40); LDL CHOLESTEROL 77.2 MG/DL (<100); MAGNESIUM LEVEL 2.1 MG/DL (1.8-2.4); NON-HDL-C 93.6 MG/DL; POTASSIUM SERUM 4.4 MMOL/L (3.5-5.1); SODIUM LEVEL 141 MMOL/L (136-145); THYROID STIMULATING HORMONE 1.503 uIU/ML (0.55-4.78); TOTAL 25(OH) VITAMIN D 57.6 NG/ML (20.0-100.0); TOTAL PROTEIN 6.8 G/DL (5.7-8.2); TRIGLYCERIDES LEVEL 82 MG/DL (<150)
[2024-12-13 15:28] LABS: HEMOGLOBIN A1c 5.2 % (4.0-6.0)
== END ==
LOC: M LAB REF 12:44
PROVIDERS: ATTEND Nurse Practitioner Family
DX: E55.9 Vitamin D deficiency, unspecified (principal); E66.3 Overweight